=== PATIENT | male | born 1950 | race Asian ===

== ENCOUNTER 2021-01-19 10:48 | Emergency (ER) | payer MEDICARE, OTHER ==
--- NOTE | 2021-01-19 12:41 | ED Physician Documentation ---
History of Present Illness - Stated complaint Stated Complaint: SOA/DIZZY - Chief complaint Chief Complaint: General - History obtained from History obtained from: Patient, Family - History of Present Illness Timing: Today Pain level max: 0 Pain level now: 0 - Additonal information Additional information: 70-year-old male presents to the emergency department stating that this morning he had a sudden onset of lightheadedness, nausea, sweating and shortness of breath. He states that this was better when he sat down. He states he had a second episode about 30 minutes later. This occurred about 3 and half hours prior to arrival. Patient states that he is always mildly short of breath but seems worse today. Denies any cardiac history. Does have a history of hypertension. His describes heavy breathing when he is sleeping, concerned about potential sleep apnea. He has not had a sleep study. No focal numbness or weakness. No speech difficulties. No changes in vision. Currently is feeling better, but still mild shortness of breath. Has not had similar symptoms previously. States his appetite has been normal. Has had his Covid vaccinations. Review of Systems Ten Systems: 10 systems reviewed and negative Constitutional: denies: Fever, Chills Nose: denies: Rhinorrhea / runny nose, Congestion, Foreign Body Cardiac: denies: Chest pain / pressure, Palpitations, Calf pain Respiratory: reports: Dyspnea. denies: Cough GI: denies: Abdominal Pain, Nausea, Vomiting, Diarrhea Skin: denies: Rash Musculoskeletal: denies: Neck pain, Back pain Neurologic: denies: Headache PD PAST MEDICAL HISTORY - Past Medical History Cardiovascular: Hypertension - Past Surgical History General: Appendectomy HEENT: Tonsil/Adenoidectomy - Present Medications Home Medications: Ambulatory Orders Medication Instructions Recorded Confirmed Cholecalciferol (Vitamin D3) 2,000 intlu PO DAILY 03/22/15 01/19/21 [Vitamin D3] Flaxseed Oil [Flax Oil] 1,000 mg PO DAILY 03/22/15 01/19/21 Metoprolol Tartrate 25 mg PO BID 03/22/15 01/19/21 hydroCHLOROthiazide 12.5 mg PO DAILY 03/22/15 01/19/21 [Hydrochlorothiazide] Simvastatin [Zocor] 5 mg PO DAILY 01/19/21 01/19/21 allopurinoL [Zyloprim] 100 mg PO DAILY PRN 01/19/21 01/19/21 - Allergies Allergies/Adverse Reactions: Allergies Allergy/AdvReac Type Severity Reaction Status Date / Time No Known Drug Allergies Allergy Verified 01/19/21 11:06 - Social History Does the pt smoke?: No Smoking Status: Never smoker Does the pt drink ETOH?: No Does the pt have substance abuse?: No - Immunizations Immunizations are current?: No PD ED PE NORMAL - Vitals Vital signs reviewed: Yes - General General: Alert and oriented X 3, No acute distress - HEENT HEENT: Moist mucous membranes - Neck Neck: Supple, no meningeal sign - Cardiac Cardiac: RRR, Strong equal pulses - Respiratory Respiratory: No respiratory distress, Clear bilaterally - Abdomen Abdomen: Soft, Non tender, Non distended - Derm Derm: Warm and dry - Extremities Extremities: Other (1+ bilateral lower extremity edema) - Neuro Neuro: Alert and oriented X 3 Results - Vitals Vitals: Vital Signs - 24 hr 01/19/21 01/19/21 01/19/21 11:00 13:06 15:00 Temperature 36.3 C L Heart Rate 72 72 60 Respiratory 17 21 21 Rate Blood Pressure 108/71 122/98 H 161/104 H O2 Saturation 96 92 92 01/19/21 01/19/21 01/19/21 17:00 19:00 21:00 Temperature Heart Rate 63 64 66 Respiratory 24 23 19 Rate Blood Pressure 121/85 H 123/84 H 113/78 O2 Saturation 94 97 92 Oxygen O2 Source Room air - EKG (time done) 1244 Rate: Rate (enter#) (68) Rhythm: NSR Ferdinand: Normal Intervals: Normal MS QRS: Normal Ischemia: Normal ST segments - Labs Labs: Laboratory Tests 01/19/21 01/19/21 01/19/21 12:55 12:55 12:55 WBC RBC Hgb Hct MCV MCH MCHC RDW Plt Count MPV Neut # (Auto) Lymph # (Auto) [place] # (Auto) Eos # (Auto) Baso # (Auto) Absolute Nucleated RBC Nucleated RBC % Anti-Xa Level Sodium 140 Potassium 4.6 Chloride 107 Carbon Dioxide 23 Anion Gap 10.0 BUN 22 H Creatinine 1.3 H Estimated GFR (MDRD) 54 L Glucose 124 H Calcium 9.6 Total Bilirubin 0.7 AST 48 H ALT 50 Alkaline Phosphatase 57 Troponin I High Sens 352.6 H* B-Natriuretic Peptide 73 Total Protein 7.1 Albumin 3.8 Globulin 3.3 Albumin/Globulin Ratio 1.2 Lipase 37 Nasal Adenovirus (PCR) Nasal B. parapertussis DNA (PCR) Nasal Coronavir 229E PCR Nasal Coronavir HKU1 PCR Nasal Coronavir NL63 PCR Nasal Coronavir OC43 PCR Nasal Enterovir/Rhinovir PCR Nasal Influenza B PCR Nasal Influenza A PCR Nasal Parainfluen 1 PCR Nasal Parainfluen 2 PCR Nasal Parainfluen 3 PCR Nasal Parainfluen 4 PCR Nasal RSV (PCR) Nasal B.pertussis DNA PCR Nasal C.pneumoniae (PCR) Nam Human Metapneumo PCR Nasal M.pneumoniae (PCR) Nasal SARS-CoV-2 (PCR) 01/19/21 01/19/21 01/19/21 12:55 13:27 20:10 WBC 11.8 H RBC 5.40 Hgb 16.2 Hct 48.5 MCV 89.8 MCH 30.0 MCHC 33.4 RDW 14.0 Plt Count 194 MPV 9.6 Neut # (Auto) 7.3 H Lymph # (Auto) 3.2 [place] # (Auto) 1.0 Eos # (Auto) 0.1 Baso # (Auto) 0.1 Absolute Nucleated RBC 0.00 Nucleated RBC % 0.0 Anti-Xa Level Sodium Potassium Chloride Carbon Dioxide Anion Gap BUN Creatinine Estimated GFR (MDRD) Glucose Calcium Total Bilirubin AST ALT Alkaline Phosphatase Troponin I High Sens 500.8 H* B-Natriuretic Peptide Total Protein Albumin Globulin Albumin/Globulin Ratio Lipase Nasal Adenovirus (PCR) NOT DETECTED Nasal B. parapertussis DNA (PCR) NOT DETECTED Nasal Coronavir 229E PCR NOT DETECTED Nasal Coronavir HKU1 PCR NOT DETECTED Nasal Coronavir NL63 PCR NOT DETECTED Nasal Coronavir OC43 PCR NOT DETECTED Nasal Enterovir/Rhinovir PCR NOT DETECTED Nasal Influenza B PCR NOT DETECTED Nasal Influenza A PCR NOT DETECTED Nasal Parainfluen 1 PCR NOT DETECTED Nasal Parainfluen 2 PCR NOT DETECTED Nasal Parainfluen 3 PCR NOT DETECTED Nasal Parainfluen 4 PCR NOT DETECTED Nasal RSV (PCR) NOT DETECTED Nasal B.pertussis DNA PCR NOT DETECTED Nasal C.pneumoniae (PCR) NOT DETECTED Nam Human Metapneumo PCR NOT DETECTED Nasal M.pneumoniae (PCR) NOT DETECTED Nasal SARS-CoV-2 (PCR) NOT DETECTED 01/19/21 20:28 WBC RBC Hgb Hct MCV MCH MCHC RDW Plt Count MPV Neut # (Auto) Lymph # (Auto) [place] # (Auto) Eos # (Auto) Baso # (Auto) Absolute Nucleated RBC Nucleated RBC % Anti-Xa Level 0.7 Sodium Potassium Chloride Carbon Dioxide Anion Gap BUN Creatinine Estimated GFR (MDRD) Glucose Calcium Total Bilirubin AST ALT Alkaline Phosphatase Troponin I High Sens B-Natriuretic Peptide Total Protein Albumin Globulin Albumin/Globulin Ratio Lipase Nasal Adenovirus (PCR) Nasal B. parapertussis DNA (PCR) Nasal Coronavir 229E PCR Nasal Coronavir HKU1 PCR Nasal Coronavir NL63 PCR Nasal Coronavir OC43 PCR Nasal Enterovir/Rhinovir PCR Nasal Influenza B PCR Nasal Influenza A PCR Nasal Parainfluen 1 PCR Nasal Parainfluen 2 PCR Nasal Parainfluen 3 PCR Nasal Parainfluen 4 PCR Nasal RSV (PCR) Nasal B.pertussis DNA PCR Nasal C.pneumoniae (PCR) Nam Human Metapneumo PCR Nasal M.pneumoniae (PCR) Nasal SARS-CoV-2 (PCR) - Rads (name of study) cxr Radiology: Final report received, EMP read contemporaneously, See rad report (No acute cardiopulmonary disease process. ) CT pulmonary angiogram Radiology: Final report received, EMP read contemporaneously, See rad report (No consolidation or other definite acute airspace opacities. ) PD MEDICAL DECISION MAKING - ED course Complexity details: reviewed results, re-evaluated patient, considered differential, d/w patient ED course: Patient is a 70-year-old male with shortness of breath and feeling off balance today. Found to have an elevated troponin. Likely non-ST elevation [place]. A CT pulmonary angiogram was ordered however there was infiltration of the contrast from the IV. Therefore the study was unable to be read. We started the patient on a heparin drip and given aspirin. Discussed the case with Dr. Galdamez, cardiology at [facility] who recommends admission to the hospitalist there. This was at about 1500 today. We are on a waiting list for beds. There are no beds anywhere in the region until tomorrow except [facility] who believes they will have a bed tonight. Patient is asymptomatic here. Patient did remain asymptomatic during the remainder of my shift. Maintained on a heparin drip. We are still awaiting beds at [facility]. Hopefully there is a bed available tonight. Patient signed out to the oncoming emergency department physician. This document was made in part using voice recognition software. While efforts are made to proofread this document, sound alike and grammatical errors may occur. Departure - Departure Disposition: 02 Transfer Acute Care Hosp Clinical Impression: NSTEMI (non-ST elevated myocardial infarction) Condition: Stable
[2021-01-19] MEDS ORDERED: IOPAMIDOL-300 100 ML VIAL ONE (12:43)
--- NOTE | 2021-01-19 13:01 | XRAY Report ---
PROCEDURE: Chest 1 View X-Ray INDICATIONS: Chest Pain TECHNIQUE: One view of the chest was acquired. COMPARISON: None FINDINGS: Surgical changes and devices: None. Lungs and pleura: No pleural effusions or pneumothorax. Lungs are clear. Mediastinum: Mediastinal contours appear normal. Heart size is normal. Bones and chest wall: No suspicious bony lesions. Overlying soft tissues appear unremarkable. IMPRESSION: No acute cardiopulmonary disease process. Reviewed by: Suzanne Alexandre MD, PhD on 01/19/2021 1:00 PM PDT Approved by: Suzanne Alexandre MD, PhD on 01/19/2021 1:00 PM PDT Station ID: [id number]
[2021-01-19 13:32] LABS: BASOPHILS # (AUTO) 0.1 10^3/uL (0.0-0.1); BASOPHILS % (AUTO) 0.5 %; EOSINOPHILS # (AUTO) 0.1 10^3/uL (0.0-0.7); EOSINOPHILS % (AUTO) 1.2 %; HCT - HEMATOCRIT 48.5 % (42.0-52.0); HGB - HEMOGLOBIN 16.2 g/dL (14.0-18.0); LYMPHOCYTES # (AUTO) 3.2 10^3/uL (1.5-3.5); LYMPHOCYTES % (AUTO) 27.3 %; MEAN CORPUSCULAR HGB CONC 33.4 g/dL (32.0-36.0); MEAN CORPUSCULAR VOLUME 89.8 fL (80.0-94.0); MEAN PLATELET VOLUME 9.6 fL (7.4-11.4); MONOCYTES % (AUTO) 8.6 %; NEUTROPHILS # (AUTO) 7.3 10^3/uL (1.5-6.6); NEUTROPHILS % (AUTO) 61.8 %; PLT - PLATELET COUNT 194 10^3/uL (130-450); WHITE BLOOD COUNT 11.8 x10^3/uL (4.8-10.8)
[2021-01-19 13:33] LABS: ALBUMIN 3.8 g/dL (3.2-5.5); ALBUMIN/GLOBULIN RATIO 1.2 (1.0-2.2); BILIRUBIN,TOTAL 0.7 mg/dL (0.2-1.0); CALCIUM 9.6 mg/dL (8.5-10.3); CREATININE 1.3 mg/dL (0.6-1.2); POTASSIUM 4.6 mmol/L (3.5-5.0); TOTAL PROTEIN 7.1 g/dL (6.7-8.2)
[2021-01-19] MEDS ORDERED: ASPIRIN CHEW 81 MG TABLET PO STA (14:01)
[2021-01-19 14:10] LABS: B. PARAPERTUSSIS- RESP PCR PAN NOT DETECTED; B. PERTUSSIS- RESP PCR PANEL NOT DETECTED; C. PNEUMONIAE- RESP PCR PANEL NOT DETECTED; CORONAVIRUS 229E-RESP PCR NOT DETECTED; CORONAVIRUS HKU1-RESP PCR NOT DETECTED; CORONAVIRUS NL63-RESP PCR NOT DETECTED; CORONAVIRUS OC43-RESP PCR NOT DETECTED; HUMAN METAPNEUMOVIRUS NOT DETECTED; INFLUENZA A- RESP PCR PANEL NOT DETECTED; INFLUENZA B - RESP PCR PANEL NOT DETECTED; M. PNEUMONIAE- RESP PCR PANEL NOT DETECTED; PARAINFLUENZA VIRUS 1 NOT DETECTED; PARAINFLUENZA VIRUS 2 NOT DETECTED; PARAINFLUENZA VIRUS 3 NOT DETECTED; PARAINFLUENZA VIRUS 4 NOT DETECTED; RHINOVIRUS/ENTEROVIRUS NOT DETECTED; RSV- RESP PCR PANEL NOT DETECTED; SARS-CoV-2 -RESP PCR PANEL NOT DETECTED
[2021-01-19] MEDS: HEPARIN 25000UNITS/500ML (D5W) 25,000 UNIT/500 ML BAG IV SCH (14:48)
--- NOTE | 2021-01-19 16:11 | CT Report ---
PROCEDURE: CHEST WO INDICATIONS: SHORTNESS OF BREATH TECHNIQUE: Noncontrast images were acquired from the pulmonary apices to the posterior costophrenic angles. Cor onal and sagittal reformations were performed. For radiation dose reduction, the following was used: automated exposure control, adjustment of mA and/or kV according to patient size. COMPARISON: Chest x-ray 01/19/2021 FINDINGS: Image quality: There is motion artifact limiting evaluation. Lungs and pleura: Mild dependent atelectasis is demonstrated bilaterally. No focal consolidation. No pleural effusions or pneumothorax. Central and peripheral airways are patent and normal in caliber. Mediastinum: Heart size is enlarged. No pericardial effusion. No mediastinal adenopathy by size cr iteria. Thoracic aorta and central pulmonary arteries are normal in size. Esophagus is normal in ca liber. No hiatal hernia. Bones and chest wall: No suspicious bony lesions. No vertebral body compression fractures. No axil shirin or supraclavicular adenopathy by size criteria. There is a small hypoattenuating nodule within the inferior left thyroid lobe measuring up to 0.9 cm. Abdomen: Visualized upper abdomen demonstrates hypoattenuation of the fissures liver consistent with fatty infiltration. A small calcification within the right hepatic lobe is compatible sequelae of ol d granulomatous disease. Colonic diverticulosis is also noted in the visualized colon. IMPRESSION: 1. No consolidation or other definite acute airspace opacities. Reviewed by: Ceferino Shaffer MD on 01/19/2021 4:09 PM PDT Approved by: Ceferino Shaffer MD on 01/19/2021 4:09 PM PDT Station ID: [id number]
[2021-01-19] MEDS ORDERED: IOPAMIDOL-300 100 ML VIAL IVP ONE (16:37)
[2021-01-20] MEDS ORDERED: ATORVASTATIN 10 MG TABLET PO STA (07:29)
[2021-01-20] MEDS ORDERED: METOPROLOL TARTRATE 50 MG TABLET PO STA (07:29)
[2021-01-20] MEDS: HEPARIN 25000UNITS/500ML (D5W) 25,000 UNIT/500 ML BAG IV SCH (07:38)
--- NOTE | 2021-01-20 17:34 | ED Physician Documentation ---
ED Addendum - Addendum Addendum: 01/20/21 17:33 Patient continues to be asymptomatic in the emergency department. His echocardiogram from today does not show any significant abnormalities. Troponin is downtrending. We are continuing to contact [facility] every 2-3 hours. They state that a bed should be available soon and he is at the top of the list.
[2021-01-21] MEDS: HEPARIN 25000UNITS/500ML (D5W) 25,000 UNIT/500 ML BAG IV SCH (01:03)
[2021-01-21 05:52] LABS: BASOPHILS # (AUTO) 0.1 10^3/uL (0.0-0.1); BASOPHILS % (AUTO) 0.7 %; EOSINOPHILS # (AUTO) 0.2 10^3/uL (0.0-0.7); EOSINOPHILS % (AUTO) 1.5 %; HCT - HEMATOCRIT 43.6 % (42.0-52.0); HGB - HEMOGLOBIN 15.1 g/dL (14.0-18.0); LYMPHOCYTES % (AUTO) 28.8 %; MEAN CORPUSCULAR HEMOGLOBIN 30.9 pg (27.0-31.0); MEAN CORPUSCULAR HGB CONC 34.6 g/dL (32.0-36.0); MEAN CORPUSCULAR VOLUME 89.2 fL (80.0-94.0); MEAN PLATELET VOLUME 9.5 fL (7.4-11.4); MONOCYTES # (AUTO) 0.9 10^3/uL (0.0-1.0); MONOCYTES % (AUTO) 9.1 %; NEUTROPHILS # (AUTO) 6.1 10^3/uL (1.5-6.6); NEUTROPHILS % (AUTO) 59.3 %; PLT - PLATELET COUNT 167 10^3/uL (130-450); RED BLOOD COUNT 4.89 10^6/uL (4.70-6.10); WHITE BLOOD COUNT 10.2 x10^3/uL (4.8-10.8)
[2021-01-21] MEDS: METOPROLOL TARTRATE 25 MG TABLET PO SCH ×4 (09:15→21:00)
--- NOTE | 2021-01-21 18:38 | ED Physician Documentation ---
ED Addendum - Addendum Addendum: 01/21/21 18:36I talked with the patient and his at approximately 3:00. At this point we still had not had bed availability at [facility]. The patient has not had any chest symptoms or dyspnea while here in the ER. No signs of arrhythmias nor heart failure. His echocardiogram showed symmetric movement with this 55 to 60% ejection fraction. He does seem stable at this point. They were wondering about nonhospitalized options. This actually could be viable alternatives at this point given that he has not had any acute problems nor return of symptoms over the 2-day period. I will contact the on-call platform beater at [facility] to see if we can arrange alternative follow-up and treatments. At this point we have paged out for the platform beater on-call and has been now almost 3 hours awaiting the return call. I do feel we need them on board for tight follow-up and further evaluation. Still awaiting return phone call.
--- NOTE | 2021-01-21 19:39 | ED Physician Documentation ---
ED Addendum - Addendum Addendum: 01/21/21 19:38 I just talked with Dr. Dobson just now at 1930. I reviewed the case with him. He quite firmly felt the patient should still be transferred over for further testing and restratification. At this point after 48 hours of heparin, the patient can be discontinued from heparin and start with Plavix initial dose 300 mg and subsequently 75 mg daily. To continue with the beta- blockers and ensure on cholesterol medicine. Dr. Dobson feels the patient should still be transferred to another facility for cardiology evaluation and felt outpatient treatment without further restratification would be inappropriate.
[2021-01-21] MEDS ORDERED: CLOPIDOGREL 300 MG TABLET PO STA (19:57)
[2021-01-22] MEDS ORDERED: CLOPIDOGREL 75 MG TABLET PO SCH (09:00)
[2021-01-22] MEDS: METOPROLOL TARTRATE 25 MG TABLET PO SCH (09:28)
--- NOTE | 2021-01-22 09:53 | ED Physician Documentation ---
ED Addendum - Addendum Addendum: 01/22/21 09:38 70-year-old male with an NSTEMI 2 days ago has been accepted at [facility] by Dr. Mckoy hospitalist and he remains on heparin drip. A repeat electrocardiogram done this morning shows a sinus rhythm with a rate of 68. The computer reads Q waves in the anterior leads which I do not see I am questioning whether there may be a half a millivolt of ST elevation in the inferior leads. Since his last tracing on 01/20/2021 the baseline shiver which was present is now resolved. Dr. Mckoy has asked for the second electrocardiogram and the second Covid swab which is pending. They expect the bed later this afternoon. The patient is currently symptom-free and is waiting patiently.
[2021-01-22 10:31] LABS: B. PARAPERTUSSIS- RESP PCR PAN NOT DETECTED; B. PERTUSSIS- RESP PCR PANEL NOT DETECTED; C. PNEUMONIAE- RESP PCR PANEL NOT DETECTED; CORONAVIRUS 229E-RESP PCR NOT DETECTED; CORONAVIRUS HKU1-RESP PCR NOT DETECTED; CORONAVIRUS NL63-RESP PCR NOT DETECTED; CORONAVIRUS OC43-RESP PCR NOT DETECTED; HUMAN METAPNEUMOVIRUS NOT DETECTED; INFLUENZA A- RESP PCR PANEL NOT DETECTED; INFLUENZA B - RESP PCR PANEL NOT DETECTED; M. PNEUMONIAE- RESP PCR PANEL NOT DETECTED; PARAINFLUENZA VIRUS 1 NOT DETECTED; PARAINFLUENZA VIRUS 2 NOT DETECTED; PARAINFLUENZA VIRUS 3 NOT DETECTED; PARAINFLUENZA VIRUS 4 NOT DETECTED; RHINOVIRUS/ENTEROVIRUS NOT DETECTED; RSV- RESP PCR PANEL NOT DETECTED; SARS-CoV-2 -RESP PCR PANEL NOT DETECTED
[2021-01-22 12:12] VITALS: BP 137/81
== END 2021-01-22 13:26 | disposition short-term general hospital (02) ==
LOC: ED 10:48
DX: I21.4 Non-ST elevation (NSTEMI) myocardial infarction (principal); Z20.822 Contact with and (suspected) exposure to COVID-19; I10 Essential (primary) hypertension
CPT/HCPCS: 36415; 71045; 71250; 80053; 83690; 83880; 84484; 85025; 85520; 87631; 93005; 93306; 96365; 96366; 99285; A9270; Q9967; 0202U

== ENCOUNTER 2021-01-22 13:27 | Outpatient (CLI) | payer MEDICARE, OTHER | END 2021-01-22 13:28 | disposition short-term general hospital (02) | LOC: EMS 13:27 | PROVIDERS: ATTEND Emergency Medicine | DX: I21.4 Non-ST elevation (NSTEMI) myocardial infarction (principal) | CPT/HCPCS: A0425; A0426 ==

== ENCOUNTER 2023-03-13 16:49 | Outpatient (CLI) | payer MEDICARE, OTHER | END 2023-03-13 16:50 | disposition critical access hospital (66) | LOC: EMS 16:49 | DX: R55 Syncope and collapse (principal); K92.1 Melena; R61 Generalized hyperhidrosis; Z79.01 Long term (current) use of anticoagulants | CPT/HCPCS: A0425; A0427 ==

== ENCOUNTER 2023-03-13 17:11 | Inpatient (IN) | payer MEDICARE, OTHER ==
[2023-03-13] MEDS ORDERED: SODIUM CHLORIDE 0.9% 1,000 ML IV STA (17:16)
[2023-03-13 17:31] LABS: BASOPHILS # (AUTO) 0.1 10^3/uL (0.0-0.1); BASOPHILS % (AUTO) 0.5 %; EOSINOPHILS # (AUTO) 0.1 10^3/uL (0.0-0.7); EOSINOPHILS % (AUTO) 0.4 %; HCT - HEMATOCRIT 39.1 % (42.0-52.0); HGB - HEMOGLOBIN 12.6 g/dL (14.0-18.0); LYMPHOCYTES % (AUTO) 33.7 %; MEAN CORPUSCULAR HEMOGLOBIN 29.8 pg (27.0-31.0); MEAN CORPUSCULAR HGB CONC 32.2 g/dL (32.0-36.0); MEAN CORPUSCULAR VOLUME 92.4 fL (80.0-94.0); MEAN PLATELET VOLUME 9.7 fL (7.4-11.4); MONOCYTES % (AUTO) 6.4 %; NEUTROPHILS # (AUTO) 8.6 10^3/uL (1.5-6.6); NEUTROPHILS % (AUTO) 58.4 %; PLT - PLATELET COUNT 238 10^3/uL (130-450); RED BLOOD COUNT 4.23 10^6/uL (4.70-6.10); RED CELL DISTRIBUTION WIDTH 13.8 % (12.0-15.0); WHITE BLOOD COUNT 14.8 x10^3/uL (4.8-10.8)
[2023-03-13 17:37] LABS: INR 2.1 (0.8-1.2); PT - PROTHROMBIN TIME 21.4 secs (9.9-12.6)
[2023-03-13 17:48] LABS: ALBUMIN 3.4 g/dL (3.2-5.5); ALBUMIN/GLOBULIN RATIO 1.4 (1.0-2.2); BILIRUBIN,TOTAL 0.4 mg/dL (0.2-1.0); CALCIUM 8.6 mg/dL (8.5-10.3); CREATININE 1.4 mg/dL (0.6-1.3); POTASSIUM 4.4 mmol/L (3.5-4.5); TOTAL PROTEIN 5.9 g/dL (6.4-8.9)
--- NOTE | 2023-03-13 18:04 | ED Physician Documentation ---
PD HPI GI BLEED - Stated complaint Stated Complaint: GIB/SYNCOPE - Chief complaint Chief Complaint: Abd Pain - History obtained from History obtained from: Patient, Family - Additional information Additional information: The patient comes to the emergency department chief complaint of lower GI bleeding today. He is on Xarelto for history of PE and has a history of diverticulosis. He states he has a diverticular bleed about once a year and that normally results in a number of bright red bloody stools but resolves on its own. However, he began having bright red blood per rectum this morning arou nd 7 and has had 7 episodes throughout the day. He states he feels the urge to have a bowel movement but then he looks in the toilet bowl and it is just red. The patient states that he finally decided to come in because it was not stopping like it normally does and he became concerned. The patient denies any shortness of breath or chest pain. He still states he felt faint when he had his last bowel movement and ended up falling off the toilet against the wall. Pt and state he did not hit his head. He states that he has not had any further urge to defecate here in the emergency department. He did vomit once this evening here, but denies any coffee grounds or bright red blood in his vomitus. Nursing staff was able to observe the emesis as well and confirms that there is no appearance of blood. The patient denies any other complaints at this time. No abdominal pain. No fevers or chills. No recent dose changes to his Xarelto. PD PAST MEDICAL HISTORY - Past Medical History Cardiovascular: Hypertension Respiratory: Other Endocrine/Autoimmune: None GI: None : None Psych: None Musculoskeletal: None Derm: None - Past Surgical History General: Appendectomy HEENT: Tonsil/Adenoidectomy - Present Medications Home Medications: Ambulatory Orders Medication Instructions Recorded Confirmed Cholecalciferol (Vitamin D3) 2,000 intlu PO DAILY 03/22/15 08/09/21 [Vitamin D3] Metoprolol Tartrate 25 mg PO BID 03/22/15 08/09/21 flaxseed oiL [Flax Oil] 1,000 mg PO DAILY 03/22/15 08/09/21 hydroCHLOROthiazide 12.5 mg PO DAILY 03/22/15 08/09/21 [Hydrochlorothiazide] Simvastatin [Zocor] 5 mg PO DAILY 01/19/21 08/09/21 allopurinoL [Zyloprim] 100 mg PO DAILY PRN 01/19/21 08/09/21 - Allergies Allergies/Adverse Reactions: Allergies Allergy/AdvReac Type Severity Reaction Status Date / Time No Known Drug Allergies Allergy Verified 01/19/21 11:06 - Social History Does the pt smoke?: No Smoking Status: Never smoker Does the pt drink ETOH?: No Does the pt have substance abuse?: No - Immunizations Immunizations are current?: No PD ED PE NORMAL - Vitals Vital signs reviewed: Yes - General General: Alert and oriented X 3, No acute distress, Well developed/nourished, Other (The patient overall is fairly well-appearing and in no apparent distress.) - HEENT HEENT: Atraumatic, PERRL, EOMI, Moist mucous membranes - Neck Neck: Supple, no meningeal sign - Cardiac Cardiac: RRR, No murmur - Respiratory Respiratory: No respiratory distress, Clear bilaterally - Abdomen Abdomen: Soft, Non tender, Non distended - Derm Derm: Normal color, Warm and dry, No rash - Extremities Extremities: No deformity, No edema - Neuro Neuro: Alert and oriented X 3 - Psych Psych: Normal mood, Normal affect Results - Vitals Vitals: Vital Signs - 24 hr 03/13/23 03/13/23 17:28 18:20 Temperature 36 C L Heart Rate 55 L 60 Respiratory 20 23 Rate Blood Pressure 102/55 L 100/55 L O2 Saturation 99 100 Oxygen O2 Source Room air - Labs Labs: Laboratory Tests 03/13/23 03/13/23 03/13/23 17:22 17:22 17:22 WBC 14.8 H RBC 4.23 L Hgb 12.6 L Hct 39.1 L MCV 92.4 MCH 29.8 MCHC 32.2 RDW 13.8 Plt Count 238 MPV 9.7 Neut # (Auto) 8.6 H Lymph # (Auto) 5.0 H [place] # (Auto) 1.0 Eos # (Auto) 0.1 Baso # (Auto) 0.1 Absolute Nucleated RBC 0.00 Nucleated RBC % 0.0 PT 21.4 H INR 2.1 H Sodium 138 Potassium 4.4 Chloride 105 Carbon Dioxide 24 Anion Gap 9.0 BUN 22 H Creatinine 1.4 H Estimated GFR (MDRD) 50 L Glucose 174 H Calcium 8.6 Total Bilirubin 0.4 AST 17 ALT 23 Alkaline Phosphatase 43 Total Protein 5.9 L Albumin 3.4 Globulin 2.5 Albumin/Globulin Ratio 1.4 Lipase 30 Blood Type Blood Type Recheck Antibody Screen 03/13/23 03/13/23 17:22 18:23 WBC RBC Hgb Hct MCV MCH MCHC RDW Plt Count MPV Neut # (Auto) Lymph # (Auto) [place] # (Auto) Eos # (Auto) Baso # (Auto) Absolute Nucleated RBC Nucleated RBC % PT INR Sodium Potassium Chloride Carbon Dioxide Anion Gap BUN Creatinine Estimated GFR (MDRD) Glucose Calcium Total Bilirubin AST ALT Alkaline Phosphatase Total Protein Albumin Globulin Albumin/Globulin Ratio Lipase Blood Type A POSITIVE Blood Type Recheck A POSITIVE Antibody Screen NEGATIVE PD Medical Decision Making - ED course Complexity details: reviewed old records, reviewed results, re-evaluated patient, considered differential, d/w patient, d/w family ED course: The patient was given a 1 L bolus 0.9 normal saline in the emergency department and was worked up with laboratory studies including CBC and ear abdominal panel, as well as INR. His initial hemoglobin was 12.6. His INR was 2.1. He was hemodynamically stable here and at the time of this dictation, had not had any further blood per rectum or urge to defecate. I did speak with Dr. Hdz, who is on-call for hospitalist service, but she stated that it was too late in her shift to accept the patient and that we would have to determine later whether we would like to try to admit this patient to the night hospitalist. The patient has remained stable since. I have ordered a repeat CBC and we will see what this shows. The patient is signed out to my oncoming colleague at change of shift, Dr. Michelle, pending this. The patient will be observed either in the emergency department or in the hospital until deemed stable for discharge. Departure - Departure Clinical Impression: Lower gastrointestinal bleed Forms: PCP List
[2023-03-13 19:17] LABS: BASOPHILS # (AUTO) 0.1 10^3/uL (0.0-0.1); BASOPHILS % (AUTO) 0.3 %; EOSINOPHILS % (AUTO) 0.2 %; HCT - HEMATOCRIT 40.1 % (42.0-52.0); HGB - HEMOGLOBIN 12.9 g/dL (14.0-18.0); LYMPHOCYTES # (AUTO) 2.7 10^3/uL (1.5-3.5); LYMPHOCYTES % (AUTO) 16.6 %; MEAN CORPUSCULAR HEMOGLOBIN 29.9 pg (27.0-31.0); MEAN CORPUSCULAR HGB CONC 32.2 g/dL (32.0-36.0); MEAN PLATELET VOLUME 9.7 fL (7.4-11.4); MONOCYTES # (AUTO) 0.9 10^3/uL (0.0-1.0); MONOCYTES % (AUTO) 5.8 %; NEUTROPHILS # (AUTO) 12.3 10^3/uL (1.5-6.6); NEUTROPHILS % (AUTO) 76.4 %; PLT - PLATELET COUNT 208 10^3/uL (130-450); RED BLOOD COUNT 4.31 10^6/uL (4.70-6.10); RED CELL DISTRIBUTION WIDTH 13.6 % (12.0-15.0); WHITE BLOOD COUNT 16.1 x10^3/uL (4.8-10.8)
[2023-03-13 21:51] LABS: BASOPHILS # (AUTO) 0.1 10^3/uL (0.0-0.1); BASOPHILS % (AUTO) 0.3 %; EOSINOPHILS % (AUTO) 0.1 %; HCT - HEMATOCRIT 37.9 % (42.0-52.0); HGB - HEMOGLOBIN 12.3 g/dL (14.0-18.0); LYMPHOCYTES # (AUTO) 3.3 10^3/uL (1.5-3.5); LYMPHOCYTES % (AUTO) 19.4 %; MEAN CORPUSCULAR HEMOGLOBIN 29.9 pg (27.0-31.0); MEAN CORPUSCULAR HGB CONC 32.5 g/dL (32.0-36.0); MEAN CORPUSCULAR VOLUME 92.2 fL (80.0-94.0); MEAN PLATELET VOLUME 9.6 fL (7.4-11.4); MONOCYTES # (AUTO) 0.9 10^3/uL (0.0-1.0); MONOCYTES % (AUTO) 5.5 %; NEUTROPHILS # (AUTO) 12.6 10^3/uL (1.5-6.6); NEUTROPHILS % (AUTO) 74.1 %; PLT - PLATELET COUNT 212 10^3/uL (130-450); RED BLOOD COUNT 4.11 10^6/uL (4.70-6.10); RED CELL DISTRIBUTION WIDTH 13.9 % (12.0-15.0)
--- NOTE | 2023-03-13 23:14 | XRAY Report ---
PROCEDURE: Chest 1 View X-Ray INDICATIONS: syncope TECHNIQUE: One view of the chest was acquired. COMPARISON: None. FINDINGS: Surgical changes and devices: None. Lungs and pleura: Low lung volumes. No dense consolidation or pleural effusion. Mediastinum: Mediastinal contours appear normal. Heart size is normal. Bones and chest wall: No suspicious bony lesions. Overlying soft tissues appear unremarkable. IMPRESSION: Portable radiograph with low lung volumes, limiting evaluation. No acute radiographic abnormality. Reviewed by: Kory Plascencia MD on 03/13/2023 11:12 PM PDT Approved by: Kory Plascencia MD on 03/13/2023 11:12 PM PDT Station ID: [id number]
--- NOTE | 2023-03-14 00:47 | CT Report ---
PROCEDURE: HEAD WO INDICATIONS: recurrent syncope; fell tonight, on xarelto TECHNIQUE: Noncontrast 4.5 mm thick angled axial sections acquired from the foramen magnum to the vertex. For r adiation dose reduction, the following was used: automated exposure control, adjustment of mA and/or kV according to patient size. COMPARISON: Good FINDINGS: Image quality: Excellent CSF spaces: Basal cisterns are patent. Lateral ventricles are symmetric. Volume: Vascular calcifications. Periventricular white matter disease is commonly seen with chronic m icroangiopathy. Volume loss is present. These findings are moderate. Brain: No intracranial hemorrhage. Tam-white differentiation is grossly maintained. Suspected calcif ied meningioma along the falx. Craniofacial structures: No displaced fracture. Sinuses are clear. Orbits are intact. IMPRESSION: No acute intracranial abnormality. If there is high concern for parenchymal pathology, consider furth er evaluation with MRI. Reviewed by: Kory Plascencia MD on 03/14/2023 12:46 AM PDT Approved by: Kory Plascencia MD on 03/14/2023 12:46 AM PDT Station ID: [id number]
[2023-03-14 01:30] LABS: BILIRUBIN,URINE NEGATIVE (NEGATIVE); GLUCOSE, URINE (UA) NEGATIVE (NEGATIVE); KETONES,URINE (UA) TRACE mg/dL (NEGATIVE); LEUKOCYTE ESTERASE, URINE NEGATIVE (NEGATIVE); NITRITE,URINE NEGATIVE (NEGATIVE); OCCULT BLOOD,URINE NEGATIVE (NEGATIVE); PH,URINE 5.5 PH (5.0-7.5); PROTEIN,URINE TRACE mg/dL (NEGATIVE); UROBILINOGEN,URINE 0.2 (NORMAL) E.U./dL (NORMAL)
[2023-03-14 01:57] LABS: BACTERIA,URINE None Seen /HPF (None Seen); CLARITY,URINE CLEAR (CLEAR); RBC,URINE 0-5 /HPF (0-5); SQUAMOUS EPITHELIAL CELL,UR FEW Squamous (<= Few); WBC,URINE 0-3 /HPF (0-3)
--- NOTE | 2023-03-14 02:31 | HISTORY & PHYSICAL EXAMINATION ---
Chief Complaint - Chief Complaint Chief Complaint: bright red blood per rectum History of Present Illness - Admitted From Admitted From:: Home - History Obtained From History obtained from: patient, patient's , ER attending Exam Limitations: telemedicine visit - History of Present Illness HPI Comment/Other: Mr Lees is a 72 yo M with hx diverticulosis, hypertension, history of PE on Xarelto. Presents to the ER with c/o lower GI bleed. He had 7 episodes of BRBPR, he usually has diverticular bleed approx 1 per year, self limited after a number of bloody stools, however today he had a syncopal event when getting off the toilet, fell against the wall, no head trauma per patient and his . Per his pt had LOC ~1 minute. Last bloody BM was 4 pm yesterday. No further BM since being in the ER. Denies hematemesis, hematuria, bruising. Takes Xarelto daily as prescribed. Until rectal bleeding today pt was in his usual state of health. Denies cp, sob, palpitations, fevers, chills, headaches, dizziness, weakness, fatigue. Emesis x 1 in ER, nonbloody. Syncope episode in ER during orthostatic vitals check, SBP 70s with standing. History - Past Medical History Cardiovascular: reports: Hypertension Respiratory: reports: Other Endocrine/Autoimmune: reports: None GI: reports: None : reports: None Psych: reports: None Musculoskeletal: reports: None Derm: reports: None MRSA Hx?: No - Past Surgical History General: reports: Appendectomy HEENT: reports: Tonsil/Adenoidectomy Meds/Allgy - Home Medications Home Medications: Ambulatory Orders Medication Instructions Recorded Confirmed Cholecalciferol (Vitamin D3) 2,000 intlu PO DAILY 03/22/15 03/13/23 [Vitamin D3] Metoprolol Tartrate 25 mg PO BID 03/22/15 03/13/23 flaxseed oiL [Flax Oil] 1,000 mg PO DAILY 03/22/15 03/13/23 hydroCHLOROthiazide 25 mg PO DAILY 03/22/15 03/13/23 [Hydrochlorothiazide] Simvastatin [Zocor] 5 mg PO DAILY 01/19/21 03/13/23 allopurinoL [Zyloprim] 100 mg PO DAILY PRN 01/19/21 03/13/23 Rivaroxaban [Xarelto] 03/14/23 - Allergies Allergies/Adverse Reactions: Allergies Allergy/AdvReac Type Severity Reaction Status Date / Time No Known Drug Allergies Allergy Verified 01/19/21 11:06 Review of Systems - Constitutional Constitutional: denies: Fatigue, Fever, Chills, Malaise, Weakness - Eyes Eyes: denies: Blurred vision - Cardiovascular Cariovascular: reports: Lightheadedness. denies: Palpitations, Chest pain, Edema - Respiratory Respiratory: denies: Cough, Sputum production, Wheezing, SOB at rest - Gastrointestinal Gastrointestinal: reports: Bloody stools, Vomiting. denies: Abdominal pain, Nausea, Coffee grounds emesis - Genitourinary Genitourinary: denies: Dysuria, Frequency, Hematuria - Integumentary Integumentary: denies: Rash - Neurological Neurological: denies: General weakness - Psychiatric Psychiatric: denies: Depression, Anxiety - Hematologic/Lymphatic Hematologic/Lymphatic: reports: Anemia Prior Level of Functionality: ambulate Exam - Vital Signs Reviewed Vital Signs: Yes Vital Signs: Vital Signs x48h Temp Pulse Resp BP Pulse Ox 03/14/23 02:00 36.4 C L 74 25 H 108/64 98 03/14/23 01:24 38 L 28 H 106/71 98 03/14/23 00:39 64 18 110/65 98 03/13/23 23:49 57 L 18 102/67 98 03/13/23 23:00 60 18 101/67 97 03/13/23 21:42 67 18 101/62 95 03/13/23 21:00 90 20 108/68 98 03/13/23 19:40 57 L 18 103/63 95 - Physical Exam General Appearance: positive: No acute distress Eyes Bilateral: positive: Normal inspection ENT: positive: ENT inspection nml Neck: positive: Nml inspection Respiratory: positive: No respiratory distress Abdomen: positive: No distention Skin: positive: Color nml. negative: Pallor Extremities: positive: Nml appearance Neurologic/Psychiatric: positive: Oriented x3, Mood/affect nml Comments/Other: limited physical exam - telemedicine video Conclusion/Plan - Lab Results Fish Bones: 03/13/23 21:48 03/13/23 17:22 - Other Other Results/Comments: Assessment/Plan: Syncope secondary to orthostatic hypotension -Suspected related to acute blood loss, although Hgb has remained stable~12.5 since admission -Repeat orthostatic vitals in a.m. -Hold antihypertensives -If persistent consider further cardiac w/u with echo -potline monitor -CT head in ER no acute abnormalities Acute blood loss anemia secondary to lower GI bleed Diverticular bleed -Pt with hx diverticulosis -Last episode of BRBPR ~4 pm -Hgb stable 12.5 -Repeat labs in a.m. -Pt is agreeable to blood transfusion if needed -Gentle IV fluids -Clear liquid diet Hypertension -Hold metoprolol + HCTZ for now given orthostatic hypotension Elevated leukocytosis -Etiology unclear, pt denies fevers/chills -Possibly stress related -Trend labs repeat in a.m. MAE -Cr 1.4, likely related to blood loss, hypotension -IV fluids for hydration -Trend labs DVT ppx: SCDs Full code
[2023-03-14] MEDS ORDERED: SODIUM CHLORIDE FLUSH 0.9% 10 ML SYRINGE IVP PRN (02:45)
[2023-03-14] MEDS ORDERED: ONDANSETRON 4 MG/2 ML VIAL IVP PRN (02:45)
[2023-03-14] MEDS: SODIUM CHLORIDE 0.9% 1,000 ML IV SCH ×3 (03:23→23:45)
--- NOTE | 2023-03-14 05:41 | ED Physician Documentation ---
ED Addendum - Addendum Addendum: 03/14/23 05:03 I received turn-over of care of this patient from Dr. Jett; please see her note for complete H&P. In brief, patient presented to the emergency department for lower GI bleeding (manifest as bright red blood per rectum) with syncopal episode tonight. His initial hemoglobin is 12.6, with a repeat hemoglobin 12.9. His prescribed medications include xarelto (h/o PE). Patient reportedly became lightheaded/dizzy when he was asked to stand at bedside as a "road test" in preparation for d/c home. Thus, plan at the time of signout of care is to repeat H&H and reevaluate. The repeat hemoglobin is 12.3. I discussed this result with the patient. He tells me that he feels no symptoms as long as he is lying down. He confirms that when he stood up in preparation for possible discharge from the emergency department, he became lightheaded and dizzy and felt generalized weakness. On my exam, he is in NAD and his abdomen is nontender to palpation. He says he still has not had any output from below, blood or stool, since arriving to the emergency department. I asked the nurse to perform orthostatic vital signs. Unfortunately, upon standing up, patient became pale, was complaining of feeling lightheaded and dizzy again. The nurse says she noted that on the monitor the patient was now bradycardic with rate in the 30s. Before blood pressure was able to be obtained, the patient had a syncopal episode. He did not fall to the ground; as he felt like he might pass out, the patient sat back down on the stretcher. Patient's was on the other side of stretcher and kept him from falling backwards off the other side of the stretcher. I was informed of this incident and asked to reevaluate the patient right away. There was a slight delay from the onset of the episode to my being notified and my being available to reevaluate the patient. By the time I evaluated the patient, he was awake and alert; answers slowly but appropriately. He is lying on the stretcher perpendicular to the bed (his legs over one side and supporting his head on the other). He is repositioned in the bed by , ED RN, and myself. I performed a rectal exam and sent Hemoccult to lab which returned positive; this is expected, as the rectal exam showed bright red blood on the glove. There was no active bleeding. I also ordered an EKG and there were no acute findings on this, and high-sensitivity troponin returns normal. Furthermore, I ordered a chest x-ray and CT head; there were no concerning findings on either of these tests. I contacted the telehealth physician who will admit the patient to the hospitalist service.
[2023-03-14 07:54] LABS: HCT - HEMATOCRIT 31.3 % (42.0-52.0); HGB - HEMOGLOBIN 10.4 g/dL (14.0-18.0); MEAN CORPUSCULAR HEMOGLOBIN 30.4 pg (27.0-31.0); MEAN CORPUSCULAR HGB CONC 33.2 g/dL (32.0-36.0); MEAN CORPUSCULAR VOLUME 91.5 fL (80.0-94.0); MEAN PLATELET VOLUME 10.1 fL (7.4-11.4); RED BLOOD COUNT 3.42 10^6/uL (4.70-6.10); RED CELL DISTRIBUTION WIDTH 14.1 % (12.0-15.0); WHITE BLOOD COUNT 16.8 x10^3/uL (4.8-10.8)
[2023-03-14 08:15] LABS: CALCIUM 8.2 mg/dL (8.5-10.3); CREATININE 1.2 mg/dL (0.6-1.3); POTASSIUM 4.4 mmol/L (3.5-4.5)
[2023-03-14] MEDS: SODIUM CHLORIDE FLUSH 0.9% 10 ML SYRINGE IVP SCH ×3 (08:52→23:47)
--- NOTE | 2023-03-14 12:41 | PROVIDER PROGRESS NOTE ---
Assessment/Plan - Problem List (1) Lower gastrointestinal bleed Assessment/Plan: Patient was placed in Observation at time of admission. This morning he had a large liquid dark red BM. Plan: Continue to hold anticoagulants and/or antiplatelet meds Follow hemoglobin twice daily Admit from Obs to Inpatient status due to ongoing active bleeding General surgery consult will be requested (2) Syncope Qualifiers: Syncope type: unspecified Qualified Code(s): R55 - Syncope and collapse Assessment/Plan: Syncope occurred at home. Then in the ER he had near syncope with foggy vision with a documented standing BP of 70 Plan: Continue to hold any meds that could lower BP Follow hemoglobin every 12 hours and transfuse as necessary Continue to follow orthostatic vitals (3) Orthostatic hypotension Assessment/Plan: The patient had near syncope in the ER and was standing at the time, with a systolic BP of 70 mmHg Plan: We will continue to check orthostatic vital signs q shift, Treat with blood transfusion or volume infusion. Hold any BP meds, the home medlist is to be reconciled today by pharmacy - Current Meds Current Meds: Current Medications Generic Name Dose Route Start Last Admin Trade Name Willq PRN Reason Stop Dose Admin Sodium Chloride 1,000 mls @ 100 mls/hr 03/14/23 03:00 03/14/23 03:23 Normal Saline 0.9% IV 100 mls/hr .Q10H GALLO Administration Sodium Chloride 10 ml 03/14/23 09:00 03/14/23 08:52 Sodium Chloride Flush 0.9% 10 Ml Syringe IVP Not Given 0100,0900,1700 GALLO - Lab Result Fish Bone Diagrams: 03/14/23 07:25 03/14/23 07:25 - Additional Planning My Orders: My Active Orders 03/14/23 Consult [General Surgery Consult] [CONS] Routine Subjective - Subjective Patient Reports: Other (Had a maroon BM this morning. "This is the worst GI bleeding he has ever had, usually only once per year has a red BM") Objective Vital Signs: Vital Signs - 24 hr 03/13/23 03/13/23 03/13/23 17:28 18:20 19:40 Temperature 36 C L Heart Rate 55 L 60 57 L Heart Rate [ Brachial] Respiratory 20 23 18 Rate Blood Pressure 102/55 L 100/55 L 103/63 Blood Pressure [Left Brachial artery] O2 Saturation 99 100 95 03/13/23 03/13/23 03/13/23 21:00 21:42 23:00 Temperature Heart Rate 90 67 60 Heart Rate [ Brachial] Respiratory 20 18 18 Rate Blood Pressure 108/68 101/62 101/67 Blood Pressure [Left Brachial artery] O2 Saturation 98 95 97 03/13/23 03/14/23 03/14/23 23:49 00:39 01:24 Temperature Heart Rate 57 L 64 38 L Heart Rate [ Brachial] Respiratory 18 18 28 H Rate Blood Pressure 102/67 110/65 106/71 Blood Pressure [Left Brachial artery] O2 Saturation 98 98 98 03/14/23 03/14/23 03/14/23 02:00 02:35 04:03 Temperature 36.4 C L Heart Rate 74 69 78 Heart Rate [ Brachial] Respiratory 25 H 15 18 Rate Blood Pressure 108/64 121/79 108/68 Blood Pressure [Left Brachial artery] O2 Saturation 98 94 98 03/14/23 03/14/23 04:36 07:48 Temperature 36.6 C 36.5 C Heart Rate Heart Rate [ 82 74 Brachial] Respiratory 24 22 Rate Blood Pressure Blood Pressure 109/60 122/58 L [Left Brachial artery] O2 Saturation 93 93 Oxygen O2 Source Room air I&O (Last 24 Hrs): Intake and Output Totals x24h 03/12/23 03/13/23 03/14/23 23:59 23:59 23:59 Intake Total 1000 510 Output Total 525 Balance 1000 -15 General: Alert, Oriented x3 HEENT: Mucous membr. moist/pink Neck: Other (Does not turn neck to R, neck supported on a neck roll pillow) Neuro: Alert, Other (jaw tremor) Cardiovascular: Regular rate Respiratory: No respiratory distress Abdomen: Normal bowel sounds, Soft, No tenderness, No masses Extremities: No clubbing, Other (1+ ankle and foot edema) - Results Results: Laboratory Results WBC 16.8 x10^3/uL (4.8-10.8) H 03/14/23 07:25 RBC 3.42 10^6/uL (4.70-6.10) L 03/14/23 07:25 Hgb 10.4 g/dL (14.0-18.0) L 03/14/23 07:25 Hct 31.3 % (42.0-52.0) L 03/14/23 07:25 MCV 91.5 fL (80.0-94.0) 03/14/23 07:25 MCH 30.4 pg (27.0-31.0) 03/14/23 07:25 MCHC 33.2 g/dL (32.0-36.0) 03/14/23 07:25 RDW 14.1 % (12.0-15.0) 03/14/23 07:25 Plt Count 189 10^3/uL (130-450) 03/14/23 07:25 MPV 10.1 fL (7.4-11.4) 03/14/23 07:25 Neut # (Auto) 12.6 10^3/uL (1.5-6.6) H 03/13/23 21:48 Lymph # (Auto) 3.3 10^3/uL (1.5-3.5) 03/13/23 21:48 [place] # (Auto) 0.9 10^3/uL (0.0-1.0) 03/13/23 21:48 Eos # (Auto) 0.0 10^3/uL (0.0-0.7) 03/13/23 21:48 Baso # (Auto) 0.1 10^3/uL (0.0-0.1) 03/13/23 21:48 Absolute Nucleated RBC 0.00 x10^3/uL 03/13/23 21:48 Nucleated RBC % 0.0 /100WBC 03/13/23 21:48 PT 21.4 secs (9.9-12.6) H 03/13/23 17:22 INR 2.1 (0.8-1.2) H 03/13/23 17:22 Sodium 139 mmol/L (135-145) 03/14/23 07:25 Potassium 4.4 mmol/L (3.5-4.5) 03/14/23 07:25 Chloride 107 mmol/L (101-111) 03/14/23 07:25 Carbon Dioxide 25 mmol/L (21-32) 03/14/23 07:25 Anion Gap 7.0 (6-13) 03/14/23 07:25 BUN 29 mg/dL (6-20) H 03/14/23 07:25 Creatinine 1.2 mg/dL (0.6-1.3) 03/14/23 07:25 Estimated GFR (MDRD) 59 (>89) L 03/14/23 07:25 Glucose 142 mg/dL (74-104) H 03/14/23 07:25 POC Whole Bld Glucose 155 mg/dL (70 - 100) H 03/13/23 22:38 Calcium 8.2 mg/dL (8.5-10.3) L 03/14/23 07:25 Total Bilirubin 0.4 mg/dL (0.2-1.0) 03/13/23 17:22 AST 17 IU/L (10-42) 03/13/23 17:22 ALT 23 IU/L (10-60) 03/13/23 17:22 Alkaline Phosphatase 43 IU/L (42-121) 03/13/23 17:22 Troponin I High Sens 7.5 ng/L (2.3-19.7) 03/13/23 21:48 Total Protein 5.9 g/dL (6.4-8.9) L 03/13/23 17:22 Albumin 3.4 g/dL (3.2-5.5) 03/13/23 17:22 Globulin 2.5 g/dL (2.1-4.2) 03/13/23 17:22 Albumin/Globulin Ratio 1.4 (1.0-2.2) 03/13/23 17:22 Lipase 30 U/L (11-82) 03/13/23 17:22 Urine Color YELLOW 03/14/23 01:14 Urine Clarity CLEAR (CLEAR) 03/14/23 01:14 Urine pH 5.5 PH (5.0-7.5) 03/14/23 01:14 Ur Specific [place] >=1.030 (1.002-1.030) H 03/14/23 01:14 Urine Protein TRACE mg/dL (NEGATIVE) 03/14/23 01:14 Urine Glucose (UA) NEGATIVE mg/dL (NEGATIVE) 03/14/23 01:14 Urine Ketones TRACE mg/dL (NEGATIVE) 03/14/23 01:14 Urine Occult Blood NEGATIVE (NEGATIVE) 03/14/23 01:14 Urine Nitrite NEGATIVE (NEGATIVE) 03/14/23 01:14 Urine Bilirubin NEGATIVE (NEGATIVE) 03/14/23 01:14 Urine Urobilinogen 0.2 (NORMAL) E.U./dL (NORMAL) 03/14/23 01:14 Ur Leukocyte Esterase NEGATIVE (NEGATIVE) 03/14/23 01:14 Urine RBC 0-5 /HPF (0-5) 03/14/23 01:14 Urine WBC 0-3 /HPF (0-3) 03/14/23 01:14 Ur Squamous Epith Cells FEW Squamous (<= Few) 03/14/23 01:14 Urine Bacteria None Seen /HPF (None Seen) 03/14/23 01:14 Urine Culture Comments NOT INDICATED 03/14/23 01:14 Blood Type A POSITIVE 03/13/23 17:22 Blood Type Recheck A POSITIVE 03/13/23 18:23 Antibody Screen NEGATIVE 03/13/23 17:22
--- NOTE | 2023-03-14 13:10 | PHARMACY PROGRESS NOTE ---
- Best Possible Medication History Admit Date and Time: 03/14/23 1027 Processed by: Pharmacy Medication History completed: Yes Patient Interview: Completed Secondary Source(s): Spouse/Significant other, Other family member, Insurance records As the person ultimately responsible for medication therapy, providers are able to order a medication from an existing home medication list in [facility] via the "Reconcile Routine" prior to Confirmation of that medication by client support administrator. Such practice is discouraged except when the physician, in their clinical judgment, deems that a medical need exists for a medication without regard to previous use.
--- NOTE | 2023-03-14 15:53 | CONSULTATION NOTE ---
Surgery Consult - Admit Date Hospital Admission Date: 03/14/23 - Home Meds/Allergies Home Medications: Patient History Medication Instructions Recorded Confirmed Metoprolol Tartrate 25 mg PO BID 03/22/15 03/13/23 hydroCHLOROthiazide 12.5 mg PO DAILY 03/22/15 03/14/23 [Hydrochlorothiazide] Simvastatin [Zocor] 5 mg PO UD 01/19/21 03/14/23 allopurinoL [Zyloprim] 100 mg PO DAILY PRN 01/19/21 03/13/23 Rivaroxaban [Xarelto] 10 mg PO DAILY 03/14/23 03/14/23 Allergies/Adverse Reactions: Allergies Allergy/AdvReac Type Severity Reaction Status Date / Time No Known Drug Allergies Allergy Verified 01/19/21 11:06 - Vital Signs Vital Signs: Last Vital Signs Temp 97.5 F L 03/14/23 13:15 Pulse 79 03/14/23 13:15 Resp 20 03/14/23 13:15 BP 123/62 03/14/23 13:15 Pulse Ox 94 03/14/23 13:15 O2 Flow Rate Intake & Output: Intake & Output 03/11/23 03/12/23 03/13/23 03/14/23 23:59 23:59 23:59 23:59 Intake Total 1000 1990 Output Total 525 Balance 1000 1465 - Lab Results Result Diagrams: 03/14/23 15:25 03/14/23 07:25 - Consultation Note Consultation Note: General Surgery Consultation Note Assessment: 1) Recurrent LGI bleed, presumably due to diverticulosis. His Hgb has decreased to 9.6. He is not having rapid blood loss from the rectum this afternoon and is hemodynamically stable. 2) History of colon polyps, last CS 10 years ago 3) Pulmonary emboli, on DOAC 4) HTN Recommendation: 1) Bowel rest. May have clear liquids 2) Stop Xarelto. Last dose was yesterday 3) Monitor H&H and transfuse as needed. 4) If he continues to have lower GI blood loss and requires on-going blood transfusions to maintain hemodynamic stability, transfer to a facility with IR capability for angioembolization. 5) Surgery will follow. <><><><><><><><><><> Reason for Consultation Hematochezia IRINA Manrique is a 72 year old man who became lightheaded yesterday evening after passing several bloody bowel motions. He has a 10 year history of recurrent diverticular bleeds sometimes requiring hospitalization. Two years ago he was started on Xarelto for pulmonary emboli. His last oral dose was yesterday. Since admission he has had a black/bloody bowel motion earlier this afternoon. He has remained hemodynamically stable and has not required blood transfusion. Past Medical History Pulmonary emboli Diverticulosis - Confirmed on a CT in 2014 when he was treated for diverticulitis LLQ Recurrent lower GI bleeding thought due to diverticular disease History of colon polyps HTN Past Surgical History T&A Appendectomy Social History [place] on [place] Current Medications See "Medication" section Allergies See "Allergy" section ROS Pertinent positives Rectal bleeding; Dizziness and lightheadedness yesterday All other reviewed systems negative Physical Examination Vital Signs: T 97.9; P 81; BP 126/54; RR 20; O2Sat 95% RA BMI: 36 GENERAL APPEARANCE: Normal development, normal grooming PSYCHIATRIC: AAO; Comfortable; In no distress EYES: Pupils equal, round and reactive to light, sclera anicteric EARS, NOSE, MOUTH, THROAT: Hearing normal, Oral mucous membranes moist and without lesions; NECK: No crepitus, lymphadenopathy, or thyromegaly LUNGS: Clear to auscultation without wheezing; No use of accessory muscles to breathe CARDIOVASCULAR: Heart-NSR without murmurs; Palpable carotid arteries - no bruits; Pedal pulses palpable ABD: Soft, non-distended; non-tender; Active BS LYMPHATIC: Neck, Axillae, Groin palpable adenopathy EXTREMITIES: No clubbing, cyanosis, infections SKIN: Anicteric; No rashes, lesions, Ulcerations Labs Hgb at 1500 today 9.6 (Admission 12.6) See "Lab " section for other results Imaging None All images were personally reviewed by me for this encounter. Bob Beck MD, [facility] General Surgery Service [phone]
[2023-03-15 05:51] LABS: HCT - HEMATOCRIT 25.7 % (42.0-52.0); HGB - HEMOGLOBIN 8.5 g/dL (14.0-18.0); MEAN CORPUSCULAR HEMOGLOBIN 30.2 pg (27.0-31.0); MEAN CORPUSCULAR HGB CONC 33.1 g/dL (32.0-36.0); MEAN CORPUSCULAR VOLUME 91.5 fL (80.0-94.0); MEAN PLATELET VOLUME 9.9 fL (7.4-11.4); RED BLOOD COUNT 2.81 10^6/uL (4.70-6.10); RED CELL DISTRIBUTION WIDTH 14.3 % (12.0-15.0); WHITE BLOOD COUNT 10.5 x10^3/uL (4.8-10.8)
[2023-03-15 06:02] LABS: CALCIUM 7.7 mg/dL (8.5-10.3); CREATININE 1.1 mg/dL (0.6-1.3); POTASSIUM 3.5 mmol/L (3.5-4.5)
[2023-03-15] MEDS: SODIUM CHLORIDE FLUSH 0.9% 10 ML SYRINGE IVP SCH ×3 (09:19→23:55)
[2023-03-15] MEDS: SODIUM CHLORIDE 0.9% 1,000 ML IV SCH ×2 (09:46→19:58)
--- NOTE | 2023-03-15 14:57 | PROVIDER PROGRESS NOTE ---
Progress Note General Surgery Progress Note S: Feels fine. No abdominal pain. No SOB. Has had no bowel motions since yesterday. Tolerating clear liquids. O: VS BP 125/65; P 75 - no orthostatic, afeb AAO: Abdomen soft, non-distended, non-tender Hgb 12.9 (admission) -> 8.1 today A: LGI bleed likely due to diverticular disease although he has not had a colonoscopy in over 10 years and has a history of colon polyps. His H&H has decreased as expected but it does not appear that he is actively bleeding. He has been off his Xarelto for 48 hrs. It would be prudent to offer lower endoscopy before starting his anticoagulation. His history of diverticulosis does not eliminate the possibility of a recurrent polyp or even a neoplasm in the colon, the continued presence of either a significant risk for re-bleeding when his anticoagulation restarts. We should also inquire from Cardiology whether the anticoagulation should be stopped because if this is determined to be a diverticular bleed, recurrent bleeding is inevitable. Plan: 1) Split prep bowel preparation tonight, colonoscopy tomorrow 2) NPO after midnight except for the bowel prep 3) Monitor H&H and transfuse if Hgb decreases below 7 Consent: Burton has been counseled for the procedure (colonoscopy), it's indications, risks, benefits and expected outcome as well as alternative therapies. We specifically discussed risks associated with anesthesia and placement of the endoscope which includes bleeding and injury to the colon which may require surgical intervention. Ryan understands, agrees, and consents to the proposed operative strategy and requests that we proceed with the procedure as outlined in our discussion. Kev Beck MD, FACS General Surgery Service
[2023-03-15] MEDS: SODIUM/POTASSIUM/MAG SULFATES 354 ML PREP KIT PO SCH (18:10)
--- NOTE | 2023-03-15 19:07 | PROVIDER PROGRESS NOTE ---
Assessment/Plan - Problem List (1) Lower gastrointestinal bleed Assessment/Plan: Patient was admitted from Observation to Inpatient status due to having recurrent large dark red jelly-loke BMs. 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 Then in the ER he had near syncope with foggy vision with a documented standing BP of 70 Plan: Continue to hold any meds that could lower BP Follow hemoglobin every 12 hours and transfuse as necessary Continue to follow orthostatic vitals (3) Orthostatic hypotension Assessment/Plan: The patient had near syncope in the ER and was standing at the time, with a systolic BP of 70 mmHg Plan: We will continue to check orthostatic vital signs q shift, Treat with blood transfusion or volume infusion. Hold any BP meds, the home med list is to be reconciled today by pharmacy - Current Meds Current Meds: Current Medications Generic Name Dose Route Start Last Admin Trade Name Willq PRN Reason Stop Dose Admin Sodium Chloride 1,000 mls @ 100 mls/hr 03/14/23 03:00 03/15/23 09:46 Normal Saline 0.9% IV 100 mls/hr .Q10H GALLO Administration Sodium Chloride 10 ml 03/14/23 09:00 03/15/23 18:10 Sodium Chloride Flush 0.9% 10 Ml Syringe IVP 10 ml 0100,0900,1700 GALLO Administration Sodium Sulfate/Potass Sulf/Mag Sulf 177 ml 03/15/23 18:00 03/15/23 18:10 Sodium/Potassium/Mag Sulfates 354 Ml Prep Kit PO 03/16/23 05:01 177 ml 1800,0500 GALLO Administration - Lab Result Fish Bone Diagrams: 03/16/23 05:28 03/15/23 05:18 - Additional Planning My Orders: My Active Orders 03/15/23 21:00 HGB - HEMOGLOBIN [HEME] Q8H 03/16/23 05:00 HGB - HEMOGLOBIN [HEME] Q8H Subjective - Subjective Patient Reports: Feeling Better (No longer lightheaded), Other (Had another dark red jelly-like BM this afternoon, not painful) Objective Vital Signs: Vital Signs - 24 hr 03/14/23 03/14/23 03/15/23 20:06 23:55 05:36 Temperature 36.3 C L 36.3 C L 36.4 C L Heart Rate [ 86 80 62 Brachial] Respiratory 20 24 18 Rate Blood Pressure 113/45 L 115/49 L 109/49 L [Left Brachial artery] O2 Saturation 95 92 92 03/15/23 03/15/23 07:59 15:45 Temperature 36.5 C 36.3 C L Heart Rate [ 70 68 Brachial] Respiratory 20 20 Rate Blood Pressure 120/61 124/59 L [Left Brachial artery] O2 Saturation 96 93 Oxygen O2 Source Room air I&O (Last 24 Hrs): Intake and Output Totals x24h 03/13/23 03/14/23 03/15/23 23:59 23:59 23:59 Intake Total 1000 3670 1850 Output Total 1125 650 Balance 1000 2545 1200 General: Alert, Oriented x3 HEENT: Mucous membr. moist/pink Neck: Supple, No JVD Neuro: Alert, Non Focal Cardiovascular: Regular rate Respiratory: No respiratory distress Abdomen: Normal bowel sounds, Soft, No tenderness, Other (Obese) Extremities: No clubbing, No edema, No tenderness/swelling - Results Results: Laboratory Results WBC 10.5 x10^3/uL (4.8-10.8) 03/15/23 05:18 RBC 2.81 10^6/uL (4.70-6.10) L 03/15/23 05:18 Hgb 8.1 g/dL (14.0-18.0) L 03/15/23 13:12 Hct 25.7 % (42.0-52.0) L 03/15/23 05:18 MCV 91.5 fL (80.0-94.0) 03/15/23 05:18 MCH 30.2 pg (27.0-31.0) 03/15/23 05:18 MCHC 33.1 g/dL (32.0-36.0) 03/15/23 05:18 RDW 14.3 % (12.0-15.0) 03/15/23 05:18 Plt Count 162 10^3/uL (130-450) 03/15/23 05:18 MPV 9.9 fL (7.4-11.4) 03/15/23 05:18 Neut # (Auto) 12.6 10^3/uL (1.5-6.6) H 03/13/23 21:48 Lymph # (Auto) 3.3 10^3/uL (1.5-3.5) 03/13/23 21:48 [place] # (Auto) 0.9 10^3/uL (0.0-1.0) 03/13/23 21:48 Eos # (Auto) 0.0 10^3/uL (0.0-0.7) 03/13/23 21:48 Baso # (Auto) 0.1 10^3/uL (0.0-0.1) 03/13/23 21:48 Absolute Nucleated RBC 0.00 x10^3/uL 03/13/23 21:48 Nucleated RBC % 0.0 /100WBC 03/13/23 21:48 PT 21.4 secs (9.9-12.6) H 03/13/23 17:22 INR 2.1 (0.8-1.2) H 03/13/23 17:22 Sodium 138 mmol/L (135-145) 03/15/23 05:18 Potassium 3.5 mmol/L (3.5-4.5) 03/15/23 05:18 Chloride 109 mmol/L (101-111) 03/15/23 05:18 Carbon Dioxide 24 mmol/L (21-32) 03/15/23 05:18 Anion Gap 5.0 (6-13) L 03/15/23 05:18 BUN 20 mg/dL (6-20) 03/15/23 05:18 Creatinine 1.1 mg/dL (0.6-1.3) 03/15/23 05:18 Estimated GFR (MDRD) 66 (>89) L 03/15/23 05:18 Glucose 123 mg/dL (74-104) H 03/15/23 05:18 POC Whole Bld Glucose 155 mg/dL (70 - 100) H 03/13/23 22:38 Calcium 7.7 mg/dL (8.5-10.3) L 03/15/23 05:18 Total Bilirubin 0.4 mg/dL (0.2-1.0) 03/13/23 17:22 AST 17 IU/L (10-42) 03/13/23 17:22 ALT 23 IU/L (10-60) 03/13/23 17:22 Alkaline Phosphatase 43 IU/L (42-121) 03/13/23 17:22 Troponin I High Sens 7.5 ng/L (2.3-19.7) 03/13/23 21:48 Total Protein 5.9 g/dL (6.4-8.9) L 03/13/23 17:22 Albumin 3.4 g/dL (3.2-5.5) 03/13/23 17:22 Globulin 2.5 g/dL (2.1-4.2) 03/13/23 17:22 Albumin/Globulin Ratio 1.4 (1.0-2.2) 03/13/23 17:22 Lipase 30 U/L (11-82) 03/13/23 17:22 Urine Color YELLOW 03/14/23 01:14 Urine Clarity CLEAR (CLEAR) 03/14/23 01:14 Urine pH 5.5 PH (5.0-7.5) 03/14/23 01:14 Ur Specific [place] >=1.030 (1.002-1.030) H 03/14/23 01:14 Urine Protein TRACE mg/dL (NEGATIVE) 03/14/23 01:14 Urine Glucose (UA) NEGATIVE mg/dL (NEGATIVE) 03/14/23 01:14 Urine Ketones TRACE mg/dL (NEGATIVE) 03/14/23 01:14 Urine Occult Blood NEGATIVE (NEGATIVE) 03/14/23 01:14 Urine Nitrite NEGATIVE (NEGATIVE) 03/14/23 01:14 Urine Bilirubin NEGATIVE (NEGATIVE) 03/14/23 01:14 Urine Urobilinogen 0.2 (NORMAL) E.U./dL (NORMAL) 03/14/23 01:14 Ur Leukocyte Esterase NEGATIVE (NEGATIVE) 03/14/23 01:14 Urine RBC 0-5 /HPF (0-5) 03/14/23 01:14 Urine WBC 0-3 /HPF (0-3) 03/14/23 01:14 Ur Squamous Epith Cells FEW Squamous (<= Few) 03/14/23 01:14 Urine Bacteria None Seen /HPF (None Seen) 03/14/23 01:14 Urine Culture Comments NOT INDICATED 03/14/23 01:14 Blood Type A POSITIVE 03/13/23 17:22 Blood Type Recheck A POSITIVE 03/13/23 18:23 Antibody Screen NEGATIVE 03/13/23 17:22
[2023-03-16] MEDS: SODIUM/POTASSIUM/MAG SULFATES 354 ML PREP KIT PO SCH (05:17)
[2023-03-16] MEDS: SODIUM CHLORIDE 0.9% 1,000 ML IV SCH (05:57)
--- NOTE | 2023-03-16 07:17 | ANESTHESIA ---
Pre-Anesthesia VS, & Labs - Diagnosis GI bleed, anemia - Procedure colonoscopy Vital Signs: Temp Pulse Resp BP Pulse Ox O2 Flow Rate 36.7 C 65 16 135/54 H 97 03/15/23 23:49 03/15/23 23:49 03/15/23 23:49 03/15/23 23:49 03/15/23 23:49 Height: 5 ft 11 in Weight (kg): 118 kg Body Mass Index: 36.3 BMI Classification: Obese - NPO >8 hours Last Fluid Intake: prep t/o noc - Lab Results Current Lab Results: Laboratory Tests 03/16/23 05:28: Hgb 8.1 L 03/15/23 21:08: Hgb 9.3 L 03/15/23 13:12: Hgb 8.1 L 03/15/23 05:18: Sodium 138, Potassium 3.5, Chloride 109, Carbon Dioxide 24, Anion Gap 5.0 L, BUN 20, Creatinine 1.1, Estimated GFR (MDRD) 66 L, Glucose 123 H, Calcium 7.7 L 03/15/23 05:18: WBC 10.5, RBC 2.81 L, Hgb 8.5 L, Hct 25.7 L, MCV 91.5, MCH 30.2, MCHC 33.1, RDW 14.3, Plt Count 162, MPV 9.9 03/14/23 15:25: Hgb 9.6 L 03/14/23 07:25: Sodium 139, Potassium 4.4, Chloride 107, Carbon Dioxide 25, Anion Gap 7.0, BUN 29 H, Creatinine 1.2, Estimated GFR (MDRD) 59 L, Glucose 142 H, Calcium 8.2 L 03/14/23 07:25: WBC 16.8 H, RBC 3.42 L, Hgb 10.4 L, Hct 31.3 L, MCV 91.5, MCH 30.4, MCHC 33.2, RDW 14.1, Plt Count 189, MPV 10.1 03/13/23 22:38: POC Whole Bld Glucose 155 H 03/13/23 21:48: Troponin I High Sens 7.5 03/13/23 21:48: WBC 17.0 H, RBC 4.11 L, Hgb 12.3 L, Hct 37.9 L, MCV 92.2, MCH 29.9, MCHC 32.5, RDW 13.9, Plt Count 212, MPV 9.6, Neut # (Auto) 12.6 H, Lymph # (Auto) 3.3, [place] # (Auto) 0.9, Eos # (Auto) 0.0, Baso # (Auto) 0.1, Absolute Nucleated RBC 0.00, Nucleated RBC % 0.0 03/13/23 19:14: WBC 16.1 H, RBC 4.31 L, Hgb 12.9 L, Hct 40.1 L, MCV 93.0, MCH 29.9, MCHC 32.2, RDW 13.6, Plt Count 208, MPV 9.7, Neut # (Auto) 12.3 H, Lymph # (Auto) 2.7, [place] # (Auto) 0.9, Eos # (Auto) 0.0, Baso # (Auto) 0.1, Absolute Nucleated RBC 0.00, Nucleated RBC % 0.0 03/13/23 18:23: Blood Type Recheck A POSITIVE 03/13/23 17:22: Blood Type A POSITIVE, Antibody Screen NEGATIVE 03/13/23 17:22: PT 21.4 H, INR 2.1 H 03/13/23 17:22: Sodium 138, Potassium 4.4, Chloride 105, Carbon Dioxide 24, Anion Gap 9.0, BUN 22 H, Creatinine 1.4 H, Estimated GFR (MDRD) 50 L, Glucose 174 H, Calcium 8.6, Total Bilirubin 0.4, AST 17, ALT 23, Alkaline Phosphatase 43, Total Protein 5.9 L, Albumin 3.4, Globulin 2.5, Albumin/Globulin Ratio 1.4, Lipase 30 03/13/23 17:22: WBC 14.8 H, RBC 4.23 L, Hgb 12.6 L, Hct 39.1 L, MCV 92.4, MCH 29.8, MCHC 32.2, RDW 13.8, Plt Count 238, MPV 9.7, Neut # (Auto) 8.6 H, Lymph # (Auto) 5.0 H, [place] # (Auto) 1.0, Eos # (Auto) 0.1, Baso # (Auto) 0.1, Absolute Nucleated RBC 0.00, Nucleated RBC % 0.0 Fish Bones: 03/16/23 05:28 03/15/23 05:18 Home Medications and Allergies Home Medications: Ambulatory Orders Rivaroxaban [Xarelto] 10 mg PO DAILY 03/14/23 Active Medications Sodium Chloride (Normal Saline 0.9%) 1,000 mls @ 100 mls/hr IV .Q10H [facility] Last Admin: 03/16/23 05:57 Dose: 100 mls/hr Ondansetron HCl (Ondansetron 4 Mg/2 Ml Vial) 4 mg IVP Q6HR PRN PRN Reason: Nausea / Vomiting Sodium Chloride (Sodium Chloride Flush 0.9% 10 Ml Syringe) 10 ml IVP PRN PRN PRN Reason: NEEDED PER PROVIDER ORDERS Sodium Chloride (Sodium Chloride Flush 0.9% 10 Ml Syringe) 10 ml IVP 0100,0900,1700 [facility] Last Admin: 03/15/23 23:55 Dose: 10 ml Metoprolol Tartrate 25 mg PO BID 03/22/15 hydroCHLOROthiazide [Hydrochlorothiazide] 12.5 mg PO DAILY 03/22/15 Simvastatin [Zocor] 5 mg PO UD 01/19/21 allopurinoL [Zyloprim] 100 mg PO DAILY PRN 01/19/21 Rivaroxaban [Xarelto] 10 mg PO DAILY 03/14/23 Allergies/Adverse Reactions: Allergies Allergy/AdvReac Type Severity Reaction Status Date / Time No Known Drug Allergies Allergy Verified 01/19/21 11:06 Anes History & Medical History - Anesthetic History Anesthesia Complications: reports: No previous complications Family history of Anesthesia Complications: Denies Family history of Malignant Hyperthermia: Denies - Medical History Cardiovascular: reports: Hypertension, Deep vein thrombosis, Pulmonary embolism Pulmonary: reports: Shortness of breath, Other Gastrointestinal: reports: None, GI bleed, Colon polyps, Diverticulitis Urinary: reports: None Musculoskeletal: reports: None, Osteoarthritis Endocrine/Autoimmune: reports: None Skin: reports: None Smoking Status: Never smoker - Surgical History General: reports: Appendectomy, Colonoscopy Eyes Ears Nose Throat (EENT): reports: Tonsil/Adenoidectomy Exam General: Alert, Oriented x3, Cooperative Dental: WNL Mouth Openin Fingerbreadth Neck Mobility: Normal Mallampati classification: III Thyromental Distance: 4-6 cm Respiratory: Lungs clear, Normal breath sounds, No respiratory distress Cardiovascular: Regular rate Neurological: Normal speech Mental/Cognitive Status: Alert/Oriented X3, Normal for patient Cognitive Status: Within normal limits Plan Anesthesia Type: Total IV Consent for Procedure(s) Verified and Reviewed: Yes Code Status: Attempt Resuscitation ASA classification: 3-Severe systemic disease Is this case an emergency?: No
[2023-03-16] MEDS ORDERED: PROPOFOL 500 MG/50 ML 500 MG/50 ML VIAL ONE (08:09)
[2023-03-16] MEDS ORDERED: MIDAZOLAM 2 MG/2 ML VIAL ONE (08:13)
[2023-03-16] MEDS ORDERED: SALINE ENEMA 133 ML BOTTLE RC ONE (09:00)
[2023-03-16] MEDS ORDERED: LIDOCAINE-MPF 2% 5 ML VIAL ONE (10:50)
--- NOTE | 2023-03-16 11:28 | ANESTHESIA POST OP EVALUATION ---
Anesthesia Post Eval - Post Anesthesia Eval Vitals: Last Vital Signs Temp 36.2 C L 03/16/23 11:19 Pulse 67 03/16/23 11:19 Resp 20 03/16/23 11:19 BP 100/42 L 03/16/23 11:19 Pulse Ox 100 03/16/23 11:19 O2 Flow Rate CV Function Including HR & BP: Stable Pain Control: Satisfactory Nausea & Vomiting: Negative Mental Status: Baseline Respiratory Status: Airway Patent Hydration Status: Satisfactory Anesthesia Complications: None
[2023-03-16] MEDS ORDERED: METOPROLOL TARTRATE 50 MG TABLET PO SCH (12:00)
[2023-03-16] MEDS ORDERED: METOPROLOL TARTRATE 50 MG TABLET PO ONE (12:00)
[2023-03-16] MEDS: SODIUM CHLORIDE FLUSH 0.9% 10 ML SYRINGE IVP SCH ×2 (12:40→16:22)
[2023-03-16] MEDS: CALCIUM CARBONATE CHEW 500 MG TABLET PO SCH ×2 (15:09→20:46)
--- NOTE | 2023-03-16 17:44 | PROVIDER PROGRESS NOTE ---
Progress Note General Surgery Progress Note This morning's CS exam identified no evidence of blood in the colon. [place]- colonic diverticulosis was present without evidence of a suspicious diverticulum as a bleeding site. A 15 mm irritated, pedunculated polyp in the transverse colon was identified and removed and retrieved with the snare cautery device. It is possible that this recent lower GI bleeding episode was due to the polyp. [place] can be started on a diet. I would ask that his DOAC not be started for a day or so to decrease the risk of bleeding from the polypectomy site. The use of Metamucil or Citrucel as a fiber supplement should be considered to manage his diverticulosis as an out-patient. Details of the endoscopic procedure can be found in [facility]. Kev Beck MD General Surgery Service [phone]
--- NOTE | 2023-03-16 19:12 | PROVIDER PROGRESS NOTE ---
Assessment/Plan - Problem List (1) Colonic polyp Assessment/Plan: Pt had colonoscopy today. I spoke to Dr Beck about the findings: several diverticuli were seen with no signs of recent bleeding and 1 large polyp was seen, felt to be the culprit, and was removed at its mid-stalk. Plan: Will resume a solid diet and stop iv fluids He has AMS even several hours after the scope, so I will not DCh home today. Anticipate DCh tomorrow. 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 Will transition to Eliquis after discharge and start in 2-3 days. I explained that to pt and he agree. (3) Syncope Qualifiers: Syncope type: unspecified Qualified Code(s): R55 - Syncope and collapse Assessment/Plan: Syncope occurred at home. Then in the ER he had near syncope with foggy vision with a documented standing BP of 70 Plan: Continue to hold any meds that could lower BP Follow hemoglobin every 12 hours and transfuse as necessary Will now stop orthostatic vital sign checks (4) Orthostatic hypotension Assessment/Plan: The patient had near syncope in the ER and was standing at the time, with a systolic BP of 70 mmHg For the last 24 hours, he has no further orthostasis Plan: We will continue to check orthostatic vital signs q shift, Treat with blood tr ansfusion or volume infusion. Hold any BP meds, the home med list is to be reconciled today by pharmacy - Current Meds Current Meds: Current Medications Generic Name Dose Route Start Last Admin Trade Name Freq PRN Reason Stop Dose Admin Calcium Carbonate/Glycine 500 mg 03/16/23 12:00 03/16/23 15:09 Calcium Carbonate Chew 500 Mg Tablet PO 500 mg BID GALLO Administration Sodium Chloride 10 ml 03/14/23 09:00 03/16/23 16:22 Sodium Chloride Flush 0.9% 10 Ml Syringe IVP 10 ml 0100,0900,1700 [facility] Administration - Lab Result Fish Bone Diagrams: 03/16/23 05:28 03/15/23 05:18 - Additional Planning My Orders: My Active Orders 03/16/23 Lunch DIET [Soft (Low Fiber) Diet] [DIET] 03/16/23 12:00 Calcium Carbonate [Tums] 500 mg PO BID 03/16/23 19:00 IV DC [IV Discontinuation] [RC] .ONCE 03/17/23 05:00 BMP - BASIC METABOLIC PANEL [CHEM] DAILYLAB CBC - COMP BLD CT W/AUTO DIFF [HEME] DAILYLAB 03/17/23 09:00 Metoprolol Tartrate [Lopressor] 25 mg PO BID Subjective - Subjective Patient Reports: Feeling Better, No Complaints (I am seeing him after the colonoscopy and he reports to me details of his colon prep last night and seem altered, not at his baseline mental status) Objective Vital Signs: Vital Signs - 24 hr 03/15/23 03/16/23 03/16/23 23:49 09:26 11:19 Temperature 36.7 C 36.4 C L 36.2 C L Heart Rate [ 65 64 67 Brachial] Respiratory 16 18 20 Rate Blood Pressure Blood Pressure 135/54 H 120/47 L 100/42 L [Left Brachial artery] Blood Pressure [Right Brachial artery] O2 Saturation 97 97 100 03/16/23 03/16/23 03/16/23 11:49 12:49 14:32 Temperature 36.4 C L 36.3 C L Heart Rate [ 67 67 64 Brachial] Respiratory 20 18 20 Rate Blood Pressure Blood Pressure 119/53 L 129/59 L 119/57 L [Left Brachial artery] Blood Pressure [Right Brachial artery] O2 Saturation 97 97 100 03/16/23 03/16/23 15:09 16:00 Temperature 36.5 C Heart Rate [ 61 Brachial] Respiratory 16 Rate Blood Pressure 119/57 L Blood Pressure [Left Brachial artery] Blood Pressure 118/63 [Right Brachial artery] O2 Saturation 96 Oxygen O2 Source Room air I&O (Last 24 Hrs): Intake and Output Totals x24h 03/14/23 03/15/23 03/16/23 23:59 23:59 23:59 Intake Total 3670 3250 2143.333 Output Total 1125 2450 2275 Balance 2545 800 -131.667 General: Alert, Oriented x3 HEENT: Atraumatic, EOMI, Mucous membr. moist/pink Neck: Supple, No JVD Neuro: Alert, Non Focal, Other (speech is pressured) Cardiovascular: Regular rate, No murmurs Respiratory: No respiratory distress, Breath sounds nml Abdomen: Normal bowel sounds, Soft, No tenderness, Other (Obese) Extremities: No clubbing, No edema, No tenderness/swelling - Results Results: Laboratory Results WBC 10.5 x10^3/uL (4.8-10.8) 03/15/23 05:18 RBC 2.81 10^6/uL (4.70-6.10) L 03/15/23 05:18 Hgb 8.1 g/dL (14.0-18.0) L 03/16/23 05:28 Hct 25.7 % (42.0-52.0) L 03/15/23 05:18 MCV 91.5 fL (80.0-94.0) 03/15/23 05:18 MCH 30.2 pg (27.0-31.0) 03/15/23 05:18 MCHC 33.1 g/dL (32.0-36.0) 03/15/23 05:18 RDW 14.3 % (12.0-15.0) 03/15/23 05:18 Plt Count 162 10^3/uL (130-450) 03/15/23 05:18 MPV 9.9 fL (7.4-11.4) 03/15/23 05:18 Neut # (Auto) 12.6 10^3/uL (1.5-6.6) H 03/13/23 21:48 Lymph # (Auto) 3.3 10^3/uL (1.5-3.5) 03/13/23 21:48 [place] # (Auto) 0.9 10^3/uL (0.0-1.0) 03/13/23 21:48 Eos # (Auto) 0.0 10^3/uL (0.0-0.7) 03/13/23 21:48 Baso # (Auto) 0.1 10^3/uL (0.0-0.1) 03/13/23 21:48 Absolute Nucleated RBC 0.00 x10^3/uL 03/13/23 21:48 Nucleated RBC % 0.0 /100WBC 03/13/23 21:48 PT 21.4 secs (9.9-12.6) H 03/13/23 17:22 INR 2.1 (0.8-1.2) H 03/13/23 17:22 Sodium 138 mmol/L (135-145) 03/15/23 05:18 Potassium 3.5 mmol/L (3.5-4.5) 03/15/23 05:18 Chloride 109 mmol/L (101-111) 03/15/23 05:18 Carbon Dioxide 24 mmol/L (21-32) 03/15/23 05:18 Anion Gap 5.0 (6-13) L 03/15/23 05:18 BUN 20 mg/dL (6-20) 03/15/23 05:18 Creatinine 1.1 mg/dL (0.6-1.3) 03/15/23 05:18 Estimated GFR (MDRD) 66 (>89) L 03/15/23 05:18 Glucose 123 mg/dL (74-104) H 03/15/23 05:18 POC Whole Bld Glucose 155 mg/dL (70 - 100) H 03/13/23 22:38 Calcium 7.7 mg/dL (8.5-10.3) L 03/15/23 05:18 Total Bilirubin 0.4 mg/dL (0.2-1.0) 03/13/23 17:22 AST 17 IU/L (10-42) 03/13/23 17:22 ALT 23 IU/L (10-60) 03/13/23 17:22 Alkaline Phosphatase 43 IU/L (42-121) 03/13/23 17:22 Troponin I High Sens 7.5 ng/L (2.3-19.7) 03/13/23 21:48 Total Protein 5.9 g/dL (6.4-8.9) L 03/13/23 17:22 Albumin 3.4 g/dL (3.2-5.5) 03/13/23 17:22 Globulin 2.5 g/dL (2.1-4.2) 03/13/23 17:22 Albumin/Globulin Ratio 1.4 (1.0-2.2) 03/13/23 17:22 Lipase 30 U/L (11-82) 03/13/23 17:22 Urine Color YELLOW 03/14/23 01:14 Urine Clarity CLEAR (CLEAR) 03/14/23 01:14 Urine pH 5.5 PH (5.0-7.5) 03/14/23 01:14 Ur Specific [place] >=1.030 (1.002-1.030) H 03/14/23 01:14 Urine Protein TRACE mg/dL (NEGATIVE) 03/14/23 01:14 Urine Glucose (UA) NEGATIVE mg/dL (NEGATIVE) 03/14/23 01:14 Urine Ketones TRACE mg/dL (NEGATIVE) 03/14/23 01:14 Urine Occult Blood NEGATIVE (NEGATIVE) 03/14/23 01:14 Urine Nitrite NEGATIVE (NEGATIVE) 03/14/23 01:14 Urine Bilirubin NEGATIVE (NEGATIVE) 03/14/23 01:14 Urine Urobilinogen 0.2 (NORMAL) E.U./dL (NORMAL) 03/14/23 01:14 Ur Leukocyte Esterase NEGATIVE (NEGATIVE) 03/14/23 01:14 Urine RBC 0-5 /HPF (0-5) 03/14/23 01:14 Urine WBC 0-3 /HPF (0-3) 03/14/23 01:14 Ur Squamous Epith Cells FEW Squamous (<= Few) 03/14/23 01:14 Urine Bacteria None Seen /HPF (None Seen) 03/14/23 01:14 Urine Culture Comments NOT INDICATED 03/14/23 01:14 Blood Type A POSITIVE 03/13/23 17:22 Blood Type Recheck A POSITIVE 03/13/23 18:23 Antibody Screen NEGATIVE 03/13/23 17:22
[2023-03-16] MEDS ORDERED: allopurinoL 100 MG TABLET PO PRN (19:17)
[2023-03-17] MEDS: SODIUM CHLORIDE FLUSH 0.9% 10 ML SYRINGE IVP SCH ×2 (02:45→08:41)
[2023-03-17 06:27] LABS: BASOPHILS # (AUTO) 0.1 10^3/uL (0.0-0.1); BASOPHILS % (AUTO) 0.6 %; EOSINOPHILS # (AUTO) 0.2 10^3/uL (0.0-0.7); EOSINOPHILS % (AUTO) 2.3 %; HCT - HEMATOCRIT 23.8 % (42.0-52.0); HGB - HEMOGLOBIN 8.1 g/dL (14.0-18.0); LYMPHOCYTES # (AUTO) 2.8 10^3/uL (1.5-3.5); LYMPHOCYTES % (AUTO) 27.6 %; MEAN CORPUSCULAR HEMOGLOBIN 31.3 pg (27.0-31.0); MEAN CORPUSCULAR VOLUME 91.9 fL (80.0-94.0); MEAN PLATELET VOLUME 10.1 fL (7.4-11.4); MONOCYTES # (AUTO) 0.8 10^3/uL (0.0-1.0); MONOCYTES % (AUTO) 7.5 %; NEUTROPHILS # (AUTO) 6.1 10^3/uL (1.5-6.6); NEUTROPHILS % (AUTO) 60.1 %; NRBC ABSOLUTE COUNT (AUTO) 0.05 x10^3/uL; NUCLEATED RED BLOOD CELLS AUTO 0.5 /100WBC; PLT - PLATELET COUNT 163 10^3/uL (130-450); RED BLOOD COUNT 2.59 10^6/uL (4.70-6.10); RED CELL DISTRIBUTION WIDTH 14.6 % (12.0-15.0); WHITE BLOOD COUNT 10.1 x10^3/uL (4.8-10.8)
[2023-03-17 06:39] LABS: CALCIUM 8.1 mg/dL (8.5-10.3); POTASSIUM 3.2 mmol/L (3.5-4.5)
[2023-03-17] MEDS ORDERED: FERROUS GLUCONATE 324 MG TABLET PO SCH (08:00)
--- NOTE | 2023-03-17 08:26 | Discharge Plan ---
Discharge Plan Problem Reviewed?: Yes Disposition: Home, Self Care Condition: Fair Prescriptions: Apixaban [Eliquis] 2.5 mg PO BID #60 tablet Ferrous Gluconate [Fergon] 324 mg PO DAILY #30 tab Diet: Low Sodium (For the next 4-5 days , eat a diet that will not scrape your intestines: avoid popcorn and nuts.) Activity Restrictions: Activity as Tolerated Shower Restrictions: No Assistance Devices: Walker Instruction Topics: Diet High Fiber Dc, Polyps Colon Rectal Health Concerns: You were hospitalized because you were very anemic causing a low blood pressure making you lightheaded. The cause of the anemia was blood loss from your lower GI tract. You underwent a colonoscopy that showed a large polyp which was removed and sent for a pathology analysis which takes about a week You are being discharged home today and advised to eat a diet without popcorn or nuts for the next 4 to 5 days, but otherwise eating a solid diet is okay. You should no longer take Xarelto, since it has the highest side effect of bleeding from the intestines, than all the other medications that are similar to it. You are now prescribed to take Eliquis 2.5 mg twice a day. I can only prescribe 1 month's worth of medicines, so you need refills from your primary care provider for this Eliquis medication going forward. You may resume all your other usual pre-hospital medications. You are being discharged home to take several weeks of oral iron to build up your blood count. All new prescriptions were electronically sent to your [facility] pharmacy in [place]. You should see your primary care provider in the next 1 to 2 weeks for hospital follow-up visit, and your blood count should be checked. Plan of Treatment: As above. Care Goals: Improvement in symptoms and stabilization are the goals. Assessment: Patient understands and is agreeable with the plan. Additional Instructions or Follow Up instructions: If you have new or worsening symptoms, call your PCP for advice, or go to the ER. No Smoking: If you smoke, Please STOP! Call for help. Follow-up with: Nikhil Roth MD [Primary Care Provider] -
[2023-03-17] MEDS: CALCIUM CARBONATE CHEW 500 MG TABLET PO SCH (08:41)
[2023-03-17] MEDS ORDERED: METOPROLOL TARTRATE 50 MG TABLET PO SCH (09:00)
[2023-03-17 11:53] VITALS: BP 114/60; O2SAT 96
--- NOTE | 2023-03-17 12:48 | DISCHARGE SUMMARY ---
Discharge Summary Admit Date: 03/14/23 Discharge Date: 03/17/23 Discharging Provider: Dr Mitali Jurado Primary Care Provider: Dr Nikhil Roth Code Status: Attempt Resuscitation Condition at Discharge: Fair Discharge Disposition: 01 Home, Self Care - HPI History of Present Illness: Mr Lees is a 72 yo M with hx diverticulosis, hypertension, history of PE on Xarelto. Presents to the ER with c/o lower GI bleed. He had 7 episodes of BRBPR, he usually has diverticular bleed approx 1 per year, self limited after a number of bloody stools, however today he had a syncopal event when getting off the toilet, fell against the wall, no head trauma per patient and his . Per his pt had LOC ~1 minute. Last bloody BM was 4 pm yesterday. No further BM since being in the ER. Denies hematemesis, hematuria, bruising. Takes Xarelto daily as prescribed. Until rectal bleeding today pt was in his usual state of health. Denies cp, sob, palpitations, fevers, chills, headaches, dizziness, weakness, fatigue. Emesis x 1 in ER, nonbloody. Syncope episode in ER during orthostatic vitals check, SBP 70s with standing. He will be admitted to Hospitalist service. - HOSPITAL COURSE Hospital Course: (1) Lower gastrointestinal bleed We put a old on his Xarelto, which he said he is to take lifelong after having a PE, and put a hold any antiplatelet meds. He was seen in consult by Gen Surgeon Dr Beck. He had more dark red, jelly-like BMs, so he got bowel prepped and underwent colonoscopy. That showed a polyp which was removed. His Hgb was 12.9 at admission, and dropped >>10>> 9>> was 8.1 at discharge. He did not need a transfusion. He was started on oral Iron replacement and at discharge he was advised to stop Xarelto permanently, and changed to Eliquis as his anticoagulant, since Eliquis has the lowest GI bleed risk. He was told to start Eliquis after 3-4 more days. (2) Colonic polyp Pt had colonoscopy which showed several diverticuli with no signs of recent bleeding and 1 large polyp was seen, felt to be the culprit, and was removed at its mid-stalk. He was monitored overnight after the colonoscopy and discharged the following day. (3) Syncope His syncope occurred at home. Then in the ER he had near-syncope with foggy vision with a documented standing BP of 70 mmHg. We put a hold on meds that could lower his BP and monitored his Hgb every 12 hours. He did not need a transfusion. (4) Orthostatic hypotension The patient had near syncope in the ER and was standing at the time, with a syst olic BP of 70 mmHg. With fluids, his BP normalized. (5) Hx of pulmonarty embolism - Z86.711 At admission his medication list showed he was on Xarelto. 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 We did not see A-fib here. He was off his Xarelto while here. At the time of discharge, Xarelto was changed to Eliquis 2.5 twice daily, since Xarelto has a higher risk of causing gastrointestinal bleeding. - ALLERGIES Allergies/Adverse Reactions: Allergies Allergy/AdvReac Type Severity Reaction Status Date / Time No Known Drug Allergies Allergy Verified 01/19/21 11:06 - MEDICATIONS Home Medications: Ambulatory Orders Medication Instructions Recorded Confirmed Metoprolol Tartrate 25 mg PO BID 03/22/15 03/13/23 hydroCHLOROthiazide 12.5 mg PO DAILY 03/22/15 03/14/23 [Hydrochlorothiazide] Simvastatin [Zocor] 5 mg PO UD 01/19/21 03/14/23 allopurinoL [Zyloprim] 100 mg PO DAILY PRN 01/19/21 03/13/23 Apixaban [Eliquis] 2.5 mg PO BID #60 tablet 03/17/23 Ferrous Gluconate [Fergon] 324 mg PO DAILY #30 tab 03/17/23 - PHYSICAL EXAM AT DISCHARGE General Appearance: positive: No acute distress, Alert Eyes Bilateral: positive: Normal inspection, EOMI ENT: positive: ENT inspection nml, No signs of dehydration Neck: positive: Nml inspection, No JVD Respiratory: positive: No respiratory distress, Breath sounds nml Cardiovascular: positive: Regular rate & rhythm, No murmur Abdomen: positive: Non-tender, Nml bowel sounds, No distention, Other (Obese) Skin: positive: Warm, Dry Extremities: positive: Non-tender, No pedal edema Neurologic/Psychiatric: positive: Oriented x3, CN's nml (2-12), Motor nml - LABS Result Diagrams: 03/17/23 05:42 03/17/23 05:42 - DIAGNOSTIC IMAGING Diagnostic Imaging Results: Final report reviewed - FOLLOW UP Follow Up: See PCP in 1-2 weeks for a hospital F/U visit. - TIME SPENT Time Spent in Discharge (Minutes): 45
[2023-03-17] MEDS ORDERED: ATORVASTATIN 10 MG TABLET PO SCH (21:00)
[2023-03-17] MEDS ORDERED: METOPROLOL TARTRATE 25 MG TABLET PO SCH (21:00)
== END 2023-03-17 13:00 | disposition home or self-care (01) | DRG 393 ==
LOC: ED 17:11 → MS2 03-14 02:46 → OBSVTOIN 03-14 10:27
PROVIDERS: ADMIT Student in an Organized Health Care Education/Training Program; ATTEND Internal Medicine
PROC: 0DBL8ZZ Excision of Transverse Colon, Via Natural or Artificial Opening Endoscopic (ICD-10-PCS; principal; 2023-03-16 08:30)
DX: K92.2 Gastrointestinal hemorrhage, unspecified (principal); K63.5 Polyp of colon; K57.31 Diverticulosis of large intestine without perforation or abscess with bleeding; D62 Acute posthemorrhagic anemia; R00.1 Bradycardia, unspecified; W18.11XA Fall from or off toilet without subsequent striking against object, initial encounter; K64.9 Unspecified hemorrhoids; I10 Essential (primary) hypertension; N17.9 Acute kidney failure, unspecified; D72.829 Elevated white blood cell count, unspecified; Z86.711 Personal history of pulmonary embolism; Z79.01 Long term (current) use of anticoagulants; I95.1 Orthostatic hypotension; Z87.19 Personal history of other diseases of the digestive system
CPT/HCPCS: 36415; 70450; 71045; 80048; 80053; 81001; 82272; 83690; 84484; 85018; 85025; 85027; 85610; 86850; 86900; 86901; 93005; 96360; 99285; A9270; G0378; 82274; 87086